=== PATIENT | male | born 1945 | race Caucasian/White ===

== ENCOUNTER 2019-01-11 13:11 | Inpatient (IN) | payer BC, MEDICARE ==
[~2019-01-11] VITALS: Ht 182.9 cm; Wt 79.4 kg
--- NOTE | 2019-01-11 13:17 | NUR ---
PT IS IN ROOM #1B.
--- NOTE | 2019-01-11 13:18 | NUR ---
DR MCCLURE EVALUATED THE PT.
[2019-01-11] MEDS ORDERED: DIVA500T54 PO (13:20)
[2019-01-11] MEDS ORDERED: HYDR-3026 PO (13:20)
[2019-01-11] MEDS ORDERED: IV NORMAL SALINE 500 ML BAG IV ONE (13:45)
[2019-01-11 13:47] LABS: BASOPHILS # (AUTO) 0.1 K/uL (0.0-8.0); BASOPHILS % (AUTO) 0.8 % (0.0-2.0); EOSINOPHILS # (AUTO) 0.1 K/uL (0.0-0.7); EOSINOPHILS % (AUTO) 1.1 % (0.0-7.0); HEMATOCRIT 43.9 % (36.7-47.1); HEMOGLOBIN 14.1 g/dL (12.5-16.3); LYMPHOCYTES # (AUTO) 1.5 K/uL (20.0-40.0); LYMPHOCYTES % (AUTO) 18.6 % (20.5-51.5); MEAN CORPUSCULAR HEMOGLOBIN 27.9 uug (23.8-33.4); MEAN CORPUSCULAR HGB CONC 32 g/dL (32.5-36.3); MEAN CORPUSCULAR VOLUME 86.6 fL (73.0-96.2); MONOCYTES # (AUTO) 0.4 K/uL (2.0-10.0); MONOCYTES % (AUTO) 5.7 % (0.0-11.0); NEUTROPHILS # (AUTO) 5.7 K/uL (1.8-8.9); NEUTROPHILS % (AUTO) 73.8 % (38.5-71.5); PLATELET COUNT (AUTO) 196 K/uL (152-348); RED BLOOD CELL COUNT(AUTO) 5.07 MIL/uL (4.06-5.63); WHITE BLOOD COUNT (AUTO) 7.8 K/uL (3.6-10.2)
[2019-01-11 13:54] LABS: CARBON DIOXIDE 31 mmol/L (21-32); CHLORIDE 105 mmol/L (98-107); CREATININE 0.9 mg/dL (0.6-1.3); GLUCOSE 107 mg/dL (74-106); POTASSIUM 4.1 mmol/L (3.5-5.1); UREA NITROGEN, BLOOD 11 mg/dL (7-18)
[2019-01-11 13:59] LABS: ALANINE AMINOTRANSFERASE 7 U/L (16-63); ALKALINE PHOSPHATASE 107 U/L (50-136); ASPARTATE AMINOTRANSFERASE 17 U/L (15-37); BILIRUBIN,DIRECT 0.2 mg/dL (0.0-0.2); BILIRUBIN,TOTAL 0.7 mg/dL (0.2-1.0); TOTAL PROTEIN, SERUM 7.2 g/dL (6.4-8.2)
[2019-01-11 14:07] LABS: THYROID STIMULATING HORMONE 3.622 mIU/mL (0.358-3.740)
[2019-01-11 14:29] LABS: *BILIRUBIN,URIN NEGATIVE (NEGATIVE); *BLOOD, URINE NEGATIVE (NEGATIVE); *COLOR,URINE DARK YELLOW (YELLOW); *KETONES,URINE TRACE (NEGATIVE); LEUKOCYTE ESTERASE ,URINE NEGATIVE (NEGATIVE); NITRITE, URINE NEGATIVE (NEGATIVE); PH,URINE 5.5 (5.0-8.0); UGLUCOSE NEGATIVE (NEGATIVE)
[2019-01-11 14:35] LABS: *CLARITY,URINE SLIGHTLY HAZY (CLEAR)
[2019-01-11 14:37] LABS: MUCUS,URINE MANY /LPF (0-FEW)
--- NOTE | 2019-01-11 15:00 | NUR ---
Pt. admitted to [facility] , under care of [facility] [employer] MADAI Belongs List completed
--- NOTE | 2019-01-11 15:58 | NUR ---
REPORT WAS GIVEN TO RN M/S. PT WAS TRANSFERED TO ROOM #315.
[2019-01-11 16:00] VITALS: BP 111/68
--- NOTE | 2019-01-11 16:00 | NUR ---
RECEIVED PATIENT FROM ER. PATIENT NON AMBULATORY, NONVERBAL. UNABLE TO OBTAIN ANY HISTORY FROM PATIENT. IV ON RIGHT AC 18G. BED IN LOWEST POSITION, SIDE RAILS UP X2 WITH SEIZURE PRECAUTIONS, CALL LIGHT WITHIN REACH. WILL CONTINUE TO MONITOR.
[2019-01-11] MEDS ORDERED: ACETAMINOPHEN 650 MG SUPP.RECT RC PRN (16:30)
[2019-01-11] MEDS ORDERED: MAGNESIUM HYDROXIDE 30 ML LIQUID UDC PO PRN (16:30)
[2019-01-11] MEDS ORDERED: ACETAMINOPHEN 325 MG TABLET PO PRN (16:30)
[2019-01-11] MEDS ORDERED: ONDANSETRON 4 MG/2 ML VIAL IV PRN (16:30)
[2019-01-11] MEDS ORDERED: Z GUARD REMEDY PASTE 57 GM TUBE TOP PRN (16:30)
[2019-01-11] MEDS: hydrOXYzine HCL 25 MG TABLET PO SCH (17:40)
--- NOTE | 2019-01-11 19:40 | NUR ---
Received patient awake in bed, nonverbal, non ambulatory. Not in any form of distress at the moment. With IV access to ongoing IV fluid, infusing well. Seizure precautions observed. Noted medication list from assisted living was faxed, will update home medication list and inform Isael Armenta. Bed in low position, locked, side rails up x 2 for safety. Noise and lights subdued. Will continue to monitor.
[2019-01-11] MEDS ORDERED: ASCO500T10 PO (19:44)
[2019-01-11] MEDS ORDERED: CARB-93 PO (19:44)
[2019-01-11] MEDS ORDERED: RISP0.5T20 PO (19:44)
[2019-01-11] MEDS ORDERED: MULT-1094 PO (19:44)
[2019-01-11 20:02] VITALS: BP 112/60
[2019-01-11] MEDS: IV NS 1000 ML 1,000 ML IV PRN (20:30)
[2019-01-11] MEDS: DOCUSATE SODIUM 100 MG CAPSULE PO SCH (20:31)
[2019-01-11] MEDS: ENOXAPARIN SODIUM 40 MG/0.4 ML DISP.SYRIN SQ SCH (20:42)
[2019-01-12 05:33] VITALS: BP 114/64
--- NOTE | 2019-01-12 05:53 | NUR ---
Patient slept intermittently throughout the shift. Opens eyes upon calling name but still nonverbal. No distress noted. DVT pumps placed on lower extremities. Maintained on full liquid diet, pending swallow evaluation. Seizure precaution observed. Attended all needs. Ensured safety and comfort.
[2019-01-12] MEDS: PANTOPRAZOLE SODIUM 40 MG TABLET.DR PO SCH (06:10)
[2019-01-12 06:32] LABS: BASOPHILS % (AUTO) 0.6 % (0.0-2.0); EOSINOPHILS % (AUTO) 0.6 % (0.0-7.0); HEMATOCRIT 41.2 % (36.7-47.1); HEMOGLOBIN 13.5 g/dL (12.5-16.3); LYMPHOCYTES # (AUTO) 1.1 K/uL (20.0-40.0); LYMPHOCYTES % (AUTO) 15.4 % (20.5-51.5); MEAN CORPUSCULAR HEMOGLOBIN 28.4 uug (23.8-33.4); MEAN CORPUSCULAR HGB CONC 33 g/dL (32.5-36.3); MEAN CORPUSCULAR VOLUME 86.5 fL (73.0-96.2); MONOCYTES # (AUTO) 0.4 K/uL (2.0-10.0); MONOCYTES % (AUTO) 5.9 % (0.0-11.0); NEUTROPHILS # (AUTO) 5.7 K/uL (1.8-8.9); NEUTROPHILS % (AUTO) 77.5 % (38.5-71.5); PLATELET COUNT (AUTO) 169 K/uL (152-348); RED BLOOD CELL COUNT(AUTO) 4.76 MIL/uL (4.06-5.63); WHITE BLOOD COUNT (AUTO) 7.4 K/uL (3.6-10.2)
[2019-01-12 06:56] LABS: CARBON DIOXIDE 31 mmol/L (21-32); CHLORIDE 106 mmol/L (98-107); CHOLESTEROL 185 mg/dL (<200); CREATININE 0.7 mg/dL (0.6-1.3); GLUCOSE 99 mg/dL (74-106); HDL CHOLESTEROL 32 mg/dL (40-60); MAGNESIUM 1.8 mg/dL (1.8-2.4); PHOSPHOROUS 3.1 mg/dL (2.5-4.9); POTASSIUM 3.5 mmol/L (3.5-5.1); TRIGLYCERIDES 126 MG/DL (30-150); UREA NITROGEN, BLOOD 10 mg/dL (7-18)
[2019-01-12 07:09] LABS: VALPROIC ACID 6 ug/mL (50-100)
--- NOTE | 2019-01-12 07:15 | NUR ---
Received patient in bed resting with HOB elevated with no s/s of acute distress noted at this time, safety and comfort provided to the patient at all times. will continue to monitor and continue treatment plan.
[2019-01-12] MEDS: IV NS 1000 ML 1,000 ML IV PRN ×2 (08:04→21:23)
[2019-01-12] MEDS ORDERED: DIVALPROEX ER 500 MG TAB.SR.24H PO SCH (09:00)
[2019-01-12] MEDS: DIVALPROEX ER 250 MG TAB.SR.24H PO SCH (10:01)
[2019-01-12] MEDS: hydrOXYzine HCL 25 MG TABLET PO SCH ×2 (10:01→16:45)
[2019-01-12] MEDS: MULTIVIT, IRON, MIN NO. 8, FA TABLET PO SCH (10:01)
[2019-01-12] MEDS: ASCORBIC ACID 500 MG TABLET PO SCH (10:01)
[2019-01-12] MEDS: CARBIDOPA/LEVODOPA 25-100MG TABLET PO SCH ×3 (10:01→16:45)
[2019-01-12] MEDS: risperiDONE 0.5 MG TABLET PO SCH ×2 (10:01→16:46)
[2019-01-12 11:14] VITALS: BP 125/67
[2019-01-12 15:02] VITALS: BP 111/61
--- NOTE | 2019-01-12 18:33 | NUR ---
Patient alert and oriented , non verbal. HOB elevated and watching TV. No acute distress noted and no s/s of pain at this time. Kept clean and dry at all times. IV intact and patent, safety and and comfort provided at all times. Call light within reached, will continue to monitor and continue treatment.
[2019-01-12 20:00] VITALS: BP 120/66
--- NOTE | 2019-01-12 20:00 | NUR ---
RECEIVED PATIENT AWAKE IN BED, SITTING UP. PATIENT IS ALERT X1, ABLE TO RECOGNIZE NAME WHEN SPOKEN TO BUT IS APHASIC AND UNABLE TO VERBALLY RESPOND TO INQUIRIES. FLACC SCALE USED TO MEASURE PAIN/DISCOMFORT WITH NONE SEEN OR OBSERVED AT THIS TIME. ALL SAFETY AND FALL PRECAUTION MEASURES ARE IN PLACE. CALL LIGHT AND PERSONAL ITEMS ARE WITHIN REACH AT ALL TIMES. WILL CONTINUE TO MONITOR.
[2019-01-12] MEDS: DOCUSATE SODIUM 100 MG CAPSULE PO SCH (21:17)
[2019-01-12] MEDS: ATORVASTATIN 10 MG TABLET PO SCH (21:17)
[2019-01-12] MEDS: ENOXAPARIN SODIUM 40 MG/0.4 ML DISP.SYRIN SQ SCH (21:18)
--- NOTE | 2019-01-13 01:07 | NUR ---
GAVE REPORT TO NURSE TAKING OVER PATIENT'S CARE
[2019-01-13 05:46] VITALS: BP 124/82
[2019-01-13] MEDS: PANTOPRAZOLE SODIUM 40 MG TABLET.DR PO SCH (06:35)
[2019-01-13 06:50] LABS: BASOPHILS # (AUTO) 0.1 K/uL (0.0-8.0); BASOPHILS % (AUTO) 0.7 % (0.0-2.0); EOSINOPHILS % (AUTO) 0.5 % (0.0-7.0); HEMATOCRIT 39.4 % (36.7-47.1); LYMPHOCYTES # (AUTO) 1.1 K/uL (20.0-40.0); LYMPHOCYTES % (AUTO) 14.7 % (20.5-51.5); MEAN CORPUSCULAR HEMOGLOBIN 28.5 uug (23.8-33.4); MEAN CORPUSCULAR HGB CONC 33 g/dL (32.5-36.3); MEAN CORPUSCULAR VOLUME 86.6 fL (73.0-96.2); MONOCYTES # (AUTO) 0.5 K/uL (2.0-10.0); NEUTROPHILS # (AUTO) 6.1 K/uL (1.8-8.9); NEUTROPHILS % (AUTO) 78.1 % (38.5-71.5); PLATELET COUNT (AUTO) 153 K/uL (152-348); RED BLOOD CELL COUNT(AUTO) 4.55 MIL/uL (4.06-5.63); WHITE BLOOD COUNT (AUTO) 7.8 K/uL (3.6-10.2)
--- NOTE | 2019-01-13 07:15 | NUR ---
RECEIVED PATIENT LAYING IN BED SLEEPING. NO DISTRESS NOTED. BED IN LOWEST POSITION, SIDE RAILS UP X2 HOB SEMI FOWLERS FOR ASPIRATION PRECAUTIONS. WILL CONTINUE TO MONITOR.
[2019-01-13 07:23] LABS: CARBON DIOXIDE 28 mmol/L (21-32); CHLORIDE 106 mmol/L (98-107); CREATININE 0.7 mg/dL (0.6-1.3); GLUCOSE 104 mg/dL (74-106); MAGNESIUM 1.8 mg/dL (1.8-2.4); PHOSPHOROUS 2.8 mg/dL (2.5-4.9); POTASSIUM 3.6 mmol/L (3.5-5.1); UREA NITROGEN, BLOOD 8 mg/dL (7-18)
--- NOTE | 2019-01-13 07:38 | NUR ---
Pt. resting in bed alert oriented x1. Pt. responds to name. Bed bath given and new linen changes. Vital signs stable. Safety measures in place. Comfort measures provided. Will endorse to AM nurse
[2019-01-13] MEDS: DIVALPROEX ER 250 MG TAB.SR.24H PO SCH (09:36)
[2019-01-13] MEDS: hydrOXYzine HCL 25 MG TABLET PO SCH ×2 (09:36→17:26)
[2019-01-13] MEDS: ASPIRIN 81 MG TAB.CHEW PO SCH (09:36)
[2019-01-13] MEDS: ASCORBIC ACID 500 MG TABLET PO SCH (09:37)
[2019-01-13] MEDS: CARBIDOPA/LEVODOPA 25-100MG TABLET PO SCH ×3 (09:37→17:26)
[2019-01-13] MEDS: MULTIVIT, IRON, MIN NO. 8, FA TABLET PO SCH (09:37)
[2019-01-13] MEDS: risperiDONE 0.5 MG TABLET PO SCH ×2 (09:37→17:26)
[2019-01-13] MEDS: IV NS 1000 ML 1,000 ML IV PRN (10:58)
[2019-01-13 11:41] VITALS: BP 138/72
--- NOTE | 2019-01-13 14:44 | NUR ---
WOUND CARE CONSULT: PT PRESENTS WITH SACRAL SCARRING PRESENT ON ADMISSION. RECOMMENDATIONS MADE FOR SKIN PROTECTION. DISCUSSED WITH NURSING STAFF. PT IS INCONTINENT. WILL SEE PRN. PT ON FIRST STEP GINGER SALDAÑA MD IN AGREEMENT WITH PLAN OF CARE. Addendum: 01/13/19 at 1445 by ALEJANDRA LEW RN Amended: Links added.
[2019-01-13 16:04] VITALS: BP 107/59
--- NOTE | 2019-01-13 18:10 | NUR ---
Patient slept intermittently throughout day. Iv fluids running .Air mattress placed. Wound consult done for old healing wounds. no distress noted throughout shift. bed in lowest position, side rails up x2, call light within reach.
[2019-01-13 20:48] VITALS: BP 101/54
[2019-01-13] MEDS: ATORVASTATIN 10 MG TABLET PO SCH (20:50)
[2019-01-13] MEDS: DOCUSATE SODIUM 100 MG CAPSULE PO SCH (20:50)
[2019-01-13] MEDS: ENOXAPARIN SODIUM 40 MG/0.4 ML DISP.SYRIN SQ SCH (20:51)
[2019-01-14] MEDS: IV NS 1000 ML 1,000 ML IV PRN ×2 (00:36→15:28)
[2019-01-14] MEDS: PANTOPRAZOLE SODIUM 40 MG TABLET.DR PO SCH (06:30)
--- NOTE | 2019-01-14 06:58 | NUR ---
patient slept intermittently at night. Took his meds with apple sauce. Comfort and safety provided. No acute distress noted during the shift. IV is patent
[2019-01-14] MEDS: ASPIRIN 81 MG TAB.CHEW PO SCH (09:23)
[2019-01-14] MEDS: hydrOXYzine HCL 25 MG TABLET PO SCH ×2 (09:24→17:19)
[2019-01-14] MEDS: risperiDONE 0.5 MG TABLET PO SCH ×2 (09:24→17:19)
[2019-01-14] MEDS: DIVALPROEX ER 250 MG TAB.SR.24H PO SCH (09:24)
[2019-01-14] MEDS: CARBIDOPA/LEVODOPA 25-100MG TABLET PO SCH ×3 (09:25→17:19)
[2019-01-14] MEDS: MULTIVIT, IRON, MIN NO. 8, FA TABLET PO SCH (09:25)
[2019-01-14] MEDS: ASCORBIC ACID 500 MG TABLET PO SCH (09:25)
[2019-01-14 11:09] VITALS: BP 121/60
[2019-01-14 17:40] VITALS: BP 120/75
--- NOTE | 2019-01-14 19:34 | NUR ---
PATIENT HAS BEEN COOPERATIVE WITH CARE, ALL NEEDS MET AT THIS TIME, PATIENT HAS A GOOD APPETITE AND NO ASPIRATION NOTED THROUGHOUT SHIFT. BED IN LOW POSITION, SIDE RAILS UP X2, BED ALARM ON.
--- NOTE | 2019-01-14 19:43 | NUR ---
Received patient awake in bed on high fowlers, nonverbal, non ambulatory. Not in any form of distress at the moment. With IV access to ongoing IV fluid, infusing well. Will observe seizure and aspiration precautions . Bed in low position, locked, side rails up x 2 for safety. Noise and lights subdued. Will continue to monitor.
[2019-01-14] MEDS: DOCUSATE SODIUM 100 MG CAPSULE PO SCH (20:05)
[2019-01-14] MEDS: ATORVASTATIN 10 MG TABLET PO SCH (20:05)
[2019-01-14] MEDS: ENOXAPARIN SODIUM 40 MG/0.4 ML DISP.SYRIN SQ SCH (20:07)
[2019-01-14 20:19] VITALS: BP 132/62
[2019-01-15 04:18] VITALS: BP 118/68
[2019-01-15] MEDS: IV NS 1000 ML 1,000 ML IV PRN ×2 (04:38→18:47)
--- NOTE | 2019-01-15 05:43 | NUR ---
Patient slept intermittently throughout the shift. Opens eyes upon calling name but still nonverbal. No distress noted. DVT pumps on lower extremities. Seizure precaution observed. Attended all needs. Ensured safety and comfort.
[2019-01-15 05:51] LABS: BASOPHILS # (AUTO) 0.1 K/uL (0.0-8.0); BASOPHILS % (AUTO) 0.8 % (0.0-2.0); EOSINOPHILS # (AUTO) 0.1 K/uL (0.0-0.7); EOSINOPHILS % (AUTO) 1.4 % (0.0-7.0); HEMATOCRIT 38.1 % (36.7-47.1); HEMOGLOBIN 12.6 g/dL (12.5-16.3); LYMPHOCYTES # (AUTO) 1.3 K/uL (20.0-40.0); LYMPHOCYTES % (AUTO) 18.4 % (20.5-51.5); MEAN CORPUSCULAR HEMOGLOBIN 28.6 uug (23.8-33.4); MEAN CORPUSCULAR HGB CONC 33 g/dL (32.5-36.3); MEAN CORPUSCULAR VOLUME 86.2 fL (73.0-96.2); MONOCYTES # (AUTO) 0.5 K/uL (2.0-10.0); MONOCYTES % (AUTO) 6.4 % (0.0-11.0); NEUTROPHILS # (AUTO) 5.2 K/uL (1.8-8.9); PLATELET COUNT (AUTO) 157 K/uL (152-348); RED BLOOD CELL COUNT(AUTO) 4.42 MIL/uL (4.06-5.63); WHITE BLOOD COUNT (AUTO) 7.1 K/uL (3.6-10.2)
[2019-01-15] MEDS: PANTOPRAZOLE SODIUM 40 MG TABLET.DR PO SCH (06:09)
[2019-01-15 06:12] LABS: ALANINE AMINOTRANSFERASE 11 U/L (16-63); ALKALINE PHOSPHATASE 73 U/L (50-136); ASPARTATE AMINOTRANSFERASE 16 U/L (15-37); BILIRUBIN,TOTAL 0.5 mg/dL (0.2-1.0); CARBON DIOXIDE 29 mmol/L (21-32); CHLORIDE 110 mmol/L (98-107); CREATININE 0.7 mg/dL (0.6-1.3); GLUCOSE 94 mg/dL (74-106); MAGNESIUM 1.8 mg/dL (1.8-2.4); PHOSPHOROUS 3.1 mg/dL (2.5-4.9); POTASSIUM 4.2 mmol/L (3.5-5.1); TOTAL PROTEIN, SERUM 5.8 g/dL (6.4-8.2); UREA NITROGEN, BLOOD 11 mg/dL (7-18); VALPROIC ACID 13 ug/mL (50-100)
--- NOTE | 2019-01-15 07:05 | NUR ---
Received report from mold shifter nurse. Patient noted in bed awake, non-verbal. Not in distress at this time. On aspiration and seizure precautions. Kept bed in low position, locked with side rails up x 2 for safety. Will continue to monitor
[2019-01-15] MEDS: hydrOXYzine HCL 25 MG TABLET PO SCH ×2 (08:30→16:53)
[2019-01-15] MEDS: ASPIRIN 81 MG TAB.CHEW PO SCH (08:30)
[2019-01-15] MEDS: DIVALPROEX ER 250 MG TAB.SR.24H PO SCH (08:31)
[2019-01-15] MEDS: MULTIVIT, IRON, MIN NO. 8, FA TABLET PO SCH (08:31)
[2019-01-15] MEDS: risperiDONE 0.5 MG TABLET PO SCH ×2 (08:31→16:52)
[2019-01-15] MEDS: ASCORBIC ACID 500 MG TABLET PO SCH (08:31)
[2019-01-15] MEDS: CARBIDOPA/LEVODOPA 25-100MG TABLET PO SCH ×3 (08:31→16:53)
[2019-01-15 12:00] VITALS: BP 104/51
[2019-01-15 17:06] VITALS: BP 111/54
--- NOTE | 2019-01-15 18:50 | NUR ---
Patient has been cooperative w/ care. No s/sx of aspiration noted. All needs met.
[2019-01-15 20:06] VITALS: BP 107/59
[2019-01-15] MEDS: DOCUSATE SODIUM 100 MG CAPSULE PO SCH (20:19)
[2019-01-15] MEDS: ATORVASTATIN 10 MG TABLET PO SCH (20:19)
[2019-01-15] MEDS: ENOXAPARIN SODIUM 40 MG/0.4 ML DISP.SYRIN SQ SCH (20:22)
[2019-01-16 05:34] VITALS: BP 119/69
--- NOTE | 2019-01-16 05:36 | NUR ---
Patient slept well throughout the shift. No distress noted. DVT pumps on lower extremities. Air mattress in place. Seizure precaution and strict aspiration precautions observed. Attended all needs. Ensured safety and comfort.
[2019-01-16] MEDS: PANTOPRAZOLE SODIUM 40 MG TABLET.DR PO SCH (06:10)
[2019-01-16] MEDS: DIVALPROEX ER 250 MG TAB.SR.24H PO SCH (08:55)
[2019-01-16] MEDS: ASPIRIN 81 MG TAB.CHEW PO SCH (08:56)
[2019-01-16] MEDS: risperiDONE 0.5 MG TABLET PO SCH ×2 (08:56→17:41)
[2019-01-16] MEDS: CARBIDOPA/LEVODOPA 25-100MG TABLET PO SCH ×3 (08:56→17:41)
[2019-01-16] MEDS: MULTIVIT, IRON, MIN NO. 8, FA TABLET PO SCH (08:56)
[2019-01-16] MEDS: ASCORBIC ACID 500 MG TABLET PO SCH (08:56)
[2019-01-16] MEDS: hydrOXYzine HCL 25 MG TABLET PO SCH ×2 (08:57→17:41)
[2019-01-16] MEDS: IV NS 1000 ML 1,000 ML IV PRN ×2 (08:58→22:59)
[2019-01-16 09:08] VITALS: BP 129/69
[2019-01-16 11:40] VITALS: BP 100/55
[2019-01-16] MEDS ORDERED: ASPI81TA31 PO (14:11)
[2019-01-16] MEDS ORDERED: ATOR10TA PO (14:11)
[2019-01-16 16:00] VITALS: BP 112/61
--- NOTE | 2019-01-16 17:52 | NUR ---
Patient slept intermittently throughout shift. AAOx1. Nonverbal. Compliant with care and medications. No acute distress noted throughout shift. IV on R AC intact and patient with IV fluids running. Discharge ordered for today. Not able to get authorization from insurance. Goal is discharge for tomorrow. Safety and comfort measures implemented at all times. Bed in lowest and locked position. All needs met. Will endorse to night stocker nurse accordingly.
--- NOTE | 2019-01-16 20:00 | NUR ---
PATIENT AWAKE IN BED. ALERT TO SELF ONLY. FLAT AFFECT. NO S/S OF PAIN OR DISCOMFORT. NO FACIAL GRIMACE NOTED. VS WNL. IVF INFUSING WELL TO RIGHT AC #20 GAUGE. NO RESP. DISTRESS NOTED. BED ALARM ON. CALL LIGHT IN REACH. ALL NEEDS ATTENDED. WILL CONTINUE TO MONITOR AND ASSESS.
[2019-01-16 20:46] VITALS: BP 124/66
[2019-01-16] MEDS: DOCUSATE SODIUM 100 MG CAPSULE PO SCH (21:21)
[2019-01-16] MEDS: ENOXAPARIN SODIUM 40 MG/0.4 ML DISP.SYRIN SQ SCH (21:21)
[2019-01-16] MEDS: ATORVASTATIN 10 MG TABLET PO SCH (21:21)
[2019-01-17] MEDS: PANTOPRAZOLE SODIUM 40 MG TABLET.DR PO SCH (06:02)
[2019-01-17 06:28] VITALS: BP 124/65
--- NOTE | 2019-01-17 06:35 | NUR ---
PATIENT RESTING IN BED. SLEPT WELL THROUGHOUT THE NIGHT. IV NOTED TO RIGHT AC, INFILTRATED. REMOVED. NO S/S OF PAIN OR DISCOMFORT. NO RESP. DISTRESS NOTED. BED ALARM ON. ALL NEEDS ATTENDED. WILL CONTINUE TO MONITOR AND ASSESS.
--- NOTE | 2019-01-17 07:47 | NUR ---
Awake, non verbal at this time, flat affect, calm. Not in distress. No IV site.
[2019-01-17] MEDS: hydrOXYzine HCL 25 MG TABLET PO SCH ×2 (09:00→16:56)
[2019-01-17] MEDS: MULTIVIT, IRON, MIN NO. 8, FA TABLET PO SCH (09:00)
[2019-01-17] MEDS: risperiDONE 0.5 MG TABLET PO SCH ×2 (09:00→16:56)
[2019-01-17] MEDS: CARBIDOPA/LEVODOPA 25-100MG TABLET PO SCH ×3 (09:00→16:56)
[2019-01-17] MEDS: DIVALPROEX ER 250 MG TAB.SR.24H PO SCH (09:00)
[2019-01-17] MEDS: ASPIRIN 81 MG TAB.CHEW PO SCH (09:00)
[2019-01-17] MEDS: ASCORBIC ACID 500 MG TABLET PO SCH (09:00)
[2019-01-17 11:45] VITALS: BP 117/63
--- NOTE | 2019-01-17 12:30 | NUR ---
Assisted with meal with aspiration precaution. Able to consume 100% of food served.
[2019-01-17 16:26] VITALS: BP 135/67
--- NOTE | 2019-01-17 17:33 | NUR ---
Followed up w/ case management social worker Nara regarding discharge, authorization for placement still pending at this time
--- NOTE | 2019-01-17 18:12 | NUR ---
Incontinence care done. Repositioned comfortably. Kept dry and comfortable
--- NOTE | 2019-01-17 19:30 | NUR ---
Patient received lying in bed. no signs of acute distress. v/s stable. safety and comfort measures provided. bed in lowest position, side rails up x2, bed alarm on. will continue to monitor.
[2019-01-17 20:11] VITALS: BP 125/69
[2019-01-17] MEDS: ATORVASTATIN 10 MG TABLET PO SCH (21:24)
[2019-01-17] MEDS: DOCUSATE SODIUM 100 MG CAPSULE PO SCH (21:24)
[2019-01-17] MEDS: ENOXAPARIN SODIUM 40 MG/0.4 ML DISP.SYRIN SQ SCH (21:27)
--- NOTE | 2019-01-18 05:49 | NUR ---
patient slept intermittently. no signs of acute distress. all medications adminsitered and tolerated well. safety and comfort measures provided. will endorse care to morning nurse.
[2019-01-18] MEDS: PANTOPRAZOLE SODIUM 40 MG TABLET.DR PO SCH (06:13)
[2019-01-18 06:16] VITALS: BP 118/70
--- NOTE | 2019-01-18 07:20 | NUR ---
Nurse Notes: report from the night nurse Mary Fernández RN, patient is resting in bed, In no respiratory distress. No complaints of any pain. Has no hep lock.
[2019-01-18] MEDS: CARBIDOPA/LEVODOPA 25-100MG TABLET PO SCH ×3 (09:12→17:34)
[2019-01-18] MEDS: MULTIVIT, IRON, MIN NO. 8, FA TABLET PO SCH (09:13)
[2019-01-18] MEDS: risperiDONE 0.5 MG TABLET PO SCH ×2 (09:13→17:34)
[2019-01-18] MEDS: DIVALPROEX ER 250 MG TAB.SR.24H PO SCH (09:14)
[2019-01-18] MEDS: ASPIRIN 81 MG TAB.CHEW PO SCH (09:14)
[2019-01-18] MEDS: ASCORBIC ACID 500 MG TABLET PO SCH (09:14)
[2019-01-18] MEDS: hydrOXYzine HCL 25 MG TABLET PO SCH ×2 (09:22→17:36)
[2019-01-18 11:02] VITALS: BP 106/56
--- NOTE | 2019-01-18 13:30 | NUR ---
Nurse Notes: meals taken 75-80%, patient will eat when fed. taking oral medications whole on apple sauce, Appears in no discomfort. No verbally talking. eyes are open.
[2019-01-18 15:06] VITALS: BP 110/68
--- NOTE | 2019-01-18 18:11 | NUR ---
Nurse Notes: patient is going to [facility], report given to Rogers Villafuerte. via gurney and ambulance, has no hep lock. No complain ts of pain given.
== END 2019-01-18 18:15 | DRG 640 ==
LOC: ER 13:11 → MEDSURG3 15:35
PROVIDERS: ADMIT Hospitalist; ATTEND Hospitalist
DX: E86.0 Dehydration (principal); R53.2 Functional quadriplegia; G93.41 Metabolic encephalopathy; R47.01 Aphasia; F02.81 Dementia in other diseases classified elsewhere, unspecified severity, with behavioral disturbance; E44.1 Mild protein-calorie malnutrition; I67.82 Cerebral ischemia; R62.7 Adult failure to thrive; Z68.23 Body mass index [BMI] 23.0-23.9, adult; G40.909 Epilepsy, unspecified, not intractable, without status epilepticus; F20.9 Schizophrenia, unspecified; E78.5 Hyperlipidemia, unspecified; R13.10 Dysphagia, unspecified; Z99.3 Dependence on wheelchair; G31.83 Neurocognitive disorder with Lewy bodies; L90.5 Scar conditions and fibrosis of skin; L89.519 Pressure ulcer of right ankle, unspecified stage; G31.9 Degenerative disease of nervous system, unspecified
CPT/HCPCS: 36415; 70030-TC; 70450; 71045; 80164; 83735; 84100; 84443; 85025; 85730; 87086; 92526; 92610; 93005; 97110; 97530; A4663; C1758; G0378; J1650; J7030

== ENCOUNTER 2019-01-25 12:30 | Inpatient (IN) | payer MEDICARE ==
[~2019-01-25] VITALS: Ht 177.8 cm; Wt 80.3 kg
[~2019-01-25 12:30] MED LIST: ASCO500T10 PO; ASPI81TA31 PO; ATOR10TA PO; CARB-93 PO; DIVA500T54 PO; HYDR-3026 PO; MULT-1094 PO; RISP0.5T20 PO
[2019-01-25] MEDS ORDERED: IV NORMAL SALINE 500 ML BAG IV ONE (12:45)
[2019-01-25] MEDS ORDERED: LIDO40SO4 MM (12:58)
[2019-01-25] MEDS ORDERED: CICL6.6S5 TP (12:58)
[2019-01-25] MEDS ORDERED: [UNRECOGNIZED DRUG - CODE] PO (12:58)
[2019-01-25] MEDS ORDERED: DOCU100C36 PO (12:58)
[2019-01-25] MEDS ORDERED: CHLO473M3 MM (12:58)
[2019-01-25 13:04] LABS: BASOPHILS % (AUTO) 0.2 % (0.0-2.0); LYMPHOCYTES # (AUTO) 0.8 K/uL (20.0-40.0); LYMPHOCYTES % (AUTO) 3.8 % (20.5-51.5); MEAN CORPUSCULAR HEMOGLOBIN 27.8 uug (23.8-33.4); MEAN CORPUSCULAR HGB CONC 33 g/dL (32.5-36.3); MEAN CORPUSCULAR VOLUME 85.2 fL (73.0-96.2); MONOCYTES % (AUTO) 4.8 % (0.0-11.0); NEUTROPHILS # (AUTO) 18.7 K/uL (1.8-8.9); NEUTROPHILS % (AUTO) 91.2 % (38.5-71.5); PLATELET COUNT (AUTO) 273 K/uL (152-348); WHITE BLOOD COUNT (AUTO) 20.5 K/uL (3.6-10.2)
--- NOTE | 2019-01-25 13:14 | NUR ---
PT IS IN ROOM #1B. DR BURNETT EVALUATED THE PT.
[2019-01-25 13:21] LABS: CARBON DIOXIDE 30 mmol/L (21-32); CHLORIDE 100 mmol/L (98-107); CREATININE 0.8 mg/dL (0.6-1.3); GLUCOSE 131 mg/dL (74-106); POTASSIUM 3.9 mmol/L (3.5-5.1); UREA NITROGEN, BLOOD 18 mg/dL (7-18)
[2019-01-25 13:24] LABS: LYMPHOCYTES % (MANUAL) 5 % (20-40); MONOCYTES % (MANUAL) 6 % (2-10); NEUTROPHILS % (MANUAL) 89 % (42-75); THYROID STIMULATING HORMONE 3.933 mIU/mL (0.358-3.740)
[2019-01-25 13:27] LABS: ALANINE AMINOTRANSFERASE 13 U/L (16-63); ALKALINE PHOSPHATASE 90 U/L (50-136); ASPARTATE AMINOTRANSFERASE 37 U/L (15-37); BILIRUBIN,DIRECT 0.3 mg/dL (0.0-0.2); BILIRUBIN,TOTAL 0.9 mg/dL (0.2-1.0); TOTAL PROTEIN, SERUM 7.4 g/dL (6.4-8.2)
[2019-01-25 13:43] LABS: *BILIRUBIN,URIN NEGATIVE (NEGATIVE); *BLOOD, URINE 3+ (NEGATIVE); *CLARITY,URINE SLIGHTLY CLOUDY (CLEAR); *KETONES,URINE TRACE (NEGATIVE); LEUKOCYTE ESTERASE ,URINE 1+ (NEGATIVE); NITRITE, URINE NEGATIVE (NEGATIVE); UGLUCOSE NEGATIVE (NEGATIVE)
[2019-01-25 13:44] LABS: *COLOR,URINE YELLOW (YELLOW)
[2019-01-25 13:48] LABS: BACTERIA,URINE FEW /HPF (NONE SEEN); RBC,URINE TNTC /HPF (0-3); SQUAMOUS EPITHELIAL CELL,UR FEW /HPF (NONE SEEN); URINE AMORPHOUS URATE FEW /HPF
[2019-01-25] MEDS ORDERED: CEFTRIAXONE 1 G in IV DEXTROSE 5% 50 ML IV ONE (14:15)
[2019-01-25] MEDS ORDERED: CEFTRIAXONE 1 G VIAL ONE (14:24)
[2019-01-25] MEDS ORDERED: AZITHROMYCIN IV 500 MG in IV DEXTROSE 5% 250 ML IV ONE (14:45)
[2019-01-25] MEDS ORDERED: ONDANSETRON 4 MG/2 ML VIAL IV PRN (15:00)
[2019-01-25] MEDS ORDERED: MAGNESIUM HYDROXIDE 30 ML LIQUID UDC PO PRN (15:00)
[2019-01-25] MEDS ORDERED: Z GUARD REMEDY PASTE 57 GM TUBE TOP PRN (15:00)
[2019-01-25] MEDS ORDERED: CEFEPIME HCL 1 G in IV DEXTROSE 5% 50 ML IV SCH (15:00)
[2019-01-25] MEDS ORDERED: HYDROCODONE/APAP 5-325MG TABLET PO PRN (15:00)
--- NOTE | 2019-01-25 15:59 | NUR ---
REPORT WAS GIVEN TO BLOOD DONOR UNIT ASSISTANT. PT WAS TRANSFERED TO ROOM #302.
[2019-01-25 16:41] VITALS: BP 99/64
[2019-01-25] MEDS: PIPERACILLIN/TAZOBACTAM/D5W 3.375 G in PREMIXED 1 EACH IV SCH ×2 (17:53→22:08)
[2019-01-25] MEDS: IV NS 1000 ML 1,000 ML IV PRN (17:53)
--- NOTE | 2019-01-25 18:59 | NUR ---
STARTED ON ZOSYN NO SS OF ALLERGY REACTION KEPT NPO WITH IVF AT 75 ML/HR. AIR MATTRESS IN PLACED SR ON MONITOR. ASPIRATION PRECAUTION OBSERVED
--- NOTE | 2019-01-25 19:30 | NUR ---
Received patient in bed asleep, easily arousable. Patient is nonverbal. Not in distress at this time. Kept bed locked and in low position, w/ side rails up x 2. Call light in reach. Will continue to monitor Addendum: 01/26/19 at 0757 by LILIBETH ZUNIGA RN PT RESTING IN BED. PT EASILY AROUSABLE. PT IS NON VERBAL. PT IS NPO, NO DISTRESS NOTED AT THIS TIME. BED LOCKED AND IN LOW POSITION. CALL LIGHT IN REACH, WILL CONTINUE TO MONITOR , WILL CONTINUE PLAN OF CARE. Addendum: 01/26/19 at 0812 by LILIBETH ZUNIGA RN PLEASE DISREGARD ADDENDUM. ENTRY ERROR
[2019-01-25 20:00] VITALS: BP 99/54
--- NOTE | 2019-01-25 20:18 | NUR ---
Patient is discharged to home in stable condition. Heplock on left upper arm, removed. Discharge instructions and medication list given to , verbalized understanding. All belongings taken by . Escorted patient by [facility] Addendum: 01/25/19 at 2106 by [place] DELA CRUZ RN Written in error, not for this patient
[2019-01-26] VITALS: BP 133/71
[2019-01-26 04:00] VITALS: BP 134/66
[2019-01-26] MEDS: PIPERACILLIN/TAZOBACTAM/D5W 3.375 G in PREMIXED 1 EACH IV SCH ×3 (05:20→21:31)
[2019-01-26] MEDS: IV NS 1000 ML 1,000 ML IV PRN ×2 (05:27→18:06)
--- NOTE | 2019-01-26 06:26 | NUR ---
Patient slept intermittently throughout the night. Oral hygiene and suction done, tolerated well. Not in distress at this time
[2019-01-26 06:39] LABS: CARBON DIOXIDE 29 mmol/L (21-32); CHLORIDE 106 mmol/L (98-107); CHOLESTEROL 144 mg/dL (<200); CREATININE 0.8 mg/dL (0.6-1.3); GLUCOSE 108 mg/dL (74-106); HDL CHOLESTEROL 33 mg/dL (40-60); MAGNESIUM 1.9 mg/dL (1.8-2.4); PHOSPHOROUS 3.9 mg/dL (2.5-4.9); POTASSIUM 3.6 mmol/L (3.5-5.1); TRIGLYCERIDES 66 MG/DL (30-150); UREA NITROGEN, BLOOD 15 mg/dL (7-18)
[2019-01-26 06:50] LABS: BASOPHILS # (AUTO) 0.1 K/uL (0.0-8.0); BASOPHILS % (AUTO) 0.3 % (0.0-2.0); EOSINOPHILS % (AUTO) 0.1 % (0.0-7.0); HEMATOCRIT 40.8 % (36.7-47.1); HEMOGLOBIN 13.5 g/dL (12.5-16.3); LYMPHOCYTES # (AUTO) 0.8 K/uL (20.0-40.0); LYMPHOCYTES % (AUTO) 4.4 % (20.5-51.5); MEAN CORPUSCULAR HEMOGLOBIN 28.4 uug (23.8-33.4); MEAN CORPUSCULAR HGB CONC 33 g/dL (32.5-36.3); MEAN CORPUSCULAR VOLUME 85.8 fL (73.0-96.2); MONOCYTES # (AUTO) 0.7 K/uL (2.0-10.0); MONOCYTES % (AUTO) 3.8 % (0.0-11.0); NEUTROPHILS # (AUTO) 16.3 K/uL (1.8-8.9); NEUTROPHILS % (AUTO) 91.4 % (38.5-71.5); PLATELET COUNT (AUTO) 228 K/uL (152-348); RED BLOOD CELL COUNT(AUTO) 4.75 MIL/uL (4.06-5.63); WHITE BLOOD COUNT (AUTO) 17.9 K/uL (3.6-10.2)
--- NOTE | 2019-01-26 07:58 | NUR ---
PT RESTING IN BED. PT EASILY AROUSABLE. PT IS NON VERBAL. PT IS NPO, NO DISTRESS NOTED AT THIS TIME. BED LOCKED AND IN LOW POSITION. CALL LIGHT IN REACH, WILL CONTINUE TO MONITOR , WILL CONTINUE PLAN OF CARE.
[2019-01-26 08:00] VITALS: BP 118/58
[2019-01-26 11:03] VITALS: BP 109/59
--- NOTE | 2019-01-26 12:00 | NUR ---
Pt seen by ST/PT/OT for eval, requires f/u in AM. Seen by hospitalist. See notes.
[2019-01-26 15:06] VITALS: BP 106/53
--- NOTE | 2019-01-26 18:16 | NUR ---
No acute change. No acute distress noted. Continue plan of care.
[2019-01-26 20:00] VITALS: BP 119/55
[2019-01-27 04:57] VITALS: BP 121/63
--- NOTE | 2019-01-27 06:03 | NUR ---
PATIENT AWAKE IN BED. KEPT NPO ORDERED. SUCTION AND ORAL CARE PROVIDED. PATIENT REPOSITIONED TO SIDE EVERY 2 HOURS. NO S/S OF PAIN OR DISCOMFORT. NO RESP. DISTRESS NOTED. IVF INFUSING WELL. CALL LIGHT IN REACH. ALL NEEDS ATTENDED. WILL CONTINUE TO MONITOR AND ASSESS.
[2019-01-27] MEDS: PIPERACILLIN/TAZOBACTAM/D5W 3.375 G in PREMIXED 1 EACH IV SCH ×3 (06:18→22:08)
--- NOTE | 2019-01-27 07:30 | NUR ---
Patient calm and comfortable laying in bed ; call light with in reach, all safety devices in place.
[2019-01-27] MEDS: IV NS 1000 ML 1,000 ML IV PRN ×2 (08:36→22:09)
[2019-01-27] MEDS ORDERED: BARIUM SULFATE 148 GM SUSP.RECON PO ONE (10:00)
[2019-01-27] MEDS ORDERED: BARIUM SULFATE 240 ML ORAL.SUSP PO ONE (10:00)
[2019-01-27 11:18] VITALS: BP 102/52
[2019-01-27 11:58] LABS: CARBON DIOXIDE 30 mmol/L (21-32); CHLORIDE 106 mmol/L (98-107); CREATININE 0.8 mg/dL (0.6-1.3); GLUCOSE 97 mg/dL (74-106); MAGNESIUM 1.8 mg/dL (1.8-2.4); POTASSIUM 3.5 mmol/L (3.5-5.1); UREA NITROGEN, BLOOD 13 mg/dL (7-18)
[2019-01-27 12:04] LABS: BASOPHILS # (AUTO) 0.1 K/uL (0.0-8.0); BASOPHILS % (AUTO) 0.3 % (0.0-2.0); EOSINOPHILS % (AUTO) 0.1 % (0.0-7.0); HEMATOCRIT 39.6 % (36.7-47.1); HEMOGLOBIN 12.8 g/dL (12.5-16.3); LYMPHOCYTES # (AUTO) 1.1 K/uL (20.0-40.0); LYMPHOCYTES % (AUTO) 6.3 % (20.5-51.5); MEAN CORPUSCULAR HEMOGLOBIN 27.7 uug (23.8-33.4); MEAN CORPUSCULAR HGB CONC 32 g/dL (32.5-36.3); MONOCYTES # (AUTO) 0.8 K/uL (2.0-10.0); MONOCYTES % (AUTO) 4.6 % (0.0-11.0); NEUTROPHILS # (AUTO) 15.8 K/uL (1.8-8.9); NEUTROPHILS % (AUTO) 88.7 % (38.5-71.5); PLATELET COUNT (AUTO) 222 K/uL (152-348); WHITE BLOOD COUNT (AUTO) 17.8 K/uL (3.6-10.2)
--- NOTE | 2019-01-27 14:16 | NUR ---
CLINICAL PHARMACY NOTE:VANCOMYCIN DOSING request for vancomycin dosing on 73 y/o male 177.8 cm 77.11kg for suspected infection Temp 98.4 BUN 13 Scr 0.8 WBC 17.8 also receiving Zosyn. start vancomycin 1gm ivpb [id number] estimated trough 14.7. Will order trough level prior to 4th dose. Will continue to monitor.
--- NOTE | 2019-01-27 14:36 | NUR ---
WOUND CARE CONSULT: PT PRESENTS WITH LOWER EXTREMITY CONTRACTURES, RT UPPER BACK INTACT DEEP TISSUE INJURY, RT HIP SCAR WITH BLANCHABLE REDNESS, SACRAL SCARRING EXTENDING TO BUTTOCKS AND RT LOWER LEG SKIN TEAR, LEFT HEEL DEEP TISSUE INJURY, ALL PRESENT ON ADMISSION. RECOMMEND DPM CONSULT. DR CRAMER NOTIFIED OF CONSULT REQUEST. ALL SKIN PROTECTION AND WOUND CARE RECOMMENDATIONS DISCUSSED WITH NURSING STAFF. PT IS INCONTINENT. PT [facility] FIRST [facility]. DEFER TO DPM FOR LOWER EXTREMITIES. WILL SEE PRN. SWAN IN AGREEMENT WITH PLAN OF CARE. CURRENT CEDRICK SCORE IS 6. Addendum: 01/27/19 at 1439 by ALEJANDRA LEW RN Amended: Links added.
[2019-01-27 15:25] VITALS: BP 108/56
[2019-01-27] MEDS: VANCOMYCIN IV 1 G in PREMIXED 0 EACH IV SCH (19:19)
--- NOTE | 2019-01-27 19:38 | NUR ---
Patient calm and comfortable with no signs of stress ; patient with stable vital signs .
[2019-01-27 20:11] VITALS: BP 113/61
[2019-01-27] MEDS: CARBIDOPA/LEVODOPA 25-100MG TABLET NG SCH ×2 (20:16→20:17)
[2019-01-27] MEDS ORDERED: CARBAMAZEPINE 100 MG TAB.CHEW PO SCH (21:00)
[2019-01-28 05:03] VITALS: BP 105/48
[2019-01-28] MEDS: PIPERACILLIN/TAZOBACTAM/D5W 3.375 G in PREMIXED 1 EACH IV SCH ×3 (05:28→21:09)
[2019-01-28 06:40] LABS: BASOPHILS % (AUTO) 0.6 % (0.0-2.0); EOSINOPHILS % (AUTO) 0.4 % (0.0-7.0); HEMOGLOBIN 12.1 g/dL (12.5-16.3); LYMPHOCYTES % (AUTO) 6.8 % (20.5-51.5); MEAN CORPUSCULAR HEMOGLOBIN 28.1 uug (23.8-33.4); MEAN CORPUSCULAR HGB CONC 33 g/dL (32.5-36.3); MEAN CORPUSCULAR VOLUME 85.6 fL (73.0-96.2); NEUTROPHILS % (AUTO) 87.2 % (38.5-71.5); PLATELET COUNT (AUTO) 222 K/uL (152-348); RED BLOOD CELL COUNT(AUTO) 4.32 MIL/uL (4.06-5.63); WHITE BLOOD COUNT (AUTO) 10.6 K/uL (3.6-10.2)
[2019-01-28 06:41] LABS: BASOPHILS # (AUTO) 0.1 K/uL (0.0-8.0); LYMPHOCYTES # (AUTO) 0.7 K/uL (20.0-40.0); MONOCYTES # (AUTO) 0.5 K/uL (2.0-10.0); NEUTROPHILS # (AUTO) 9.2 K/uL (1.8-8.9)
[2019-01-28 06:57] LABS: CARBON DIOXIDE 28 mmol/L (21-32); CHLORIDE 110 mmol/L (98-107); CREATININE 0.7 mg/dL (0.6-1.3); GLUCOSE 90 mg/dL (74-106); MAGNESIUM 1.8 mg/dL (1.8-2.4); PHOSPHOROUS 3.1 mg/dL (2.5-4.9); POTASSIUM 3.3 mmol/L (3.5-5.1); UREA NITROGEN, BLOOD 13 mg/dL (7-18)
--- NOTE | 2019-01-28 07:28 | NUR ---
END OF SHIFT REPORT Pt rested well in between care; incontinence care done; oral care done; deep suction done via oropharyngeal and nasopharyngeal with whitish secretions; lips kept moist; Dr Tarango came and ordered PEG placement for Wednesday; consent still needed; will ff up if pt has DPOA or next of kin;
[2019-01-28] MEDS: CARBIDOPA/LEVODOPA 25-100MG TABLET NG SCH ×4 (08:39→20:28)
[2019-01-28 08:42] VITALS: BP 102/82
[2019-01-28] MEDS: VANCOMYCIN IV 1 G in PREMIXED 0 EACH IV SCH ×2 (08:54→21:58)
--- NOTE | 2019-01-28 09:28 | NUR ---
CLINICAL PHARMACY NOTE:VANCOMYCIN DOSING To continue vancomycin dosing on 73 y/o male 177.8 cm 77.11kg for suspected infection Temp 97.9 BUN 13 Scr 0.7 WBC 10.6 also receiving Zosyn. Will continue vancomycin 1gm ivpb [id number] estimated trough 14.7. Will order trough level prior to 4th dose, due tomorrow am at 1130. Will check trough when available and adjust as needed. Will continue to monitor.
[2019-01-28 11:30] VITALS: BP 115/46
[2019-01-28 11:44] VITALS: BP 115/46
[2019-01-28] MEDS: IV NS 1000 ML 1,000 ML IV PRN (13:09)
[2019-01-28] MEDS: POTASSIUM CHLORIDE 50 ML IV SCH ×2 (13:12→14:17)
[2019-01-28 15:10] VITALS: BP 106/52
[2019-01-28] MEDS: JEVITY 1.2 1000 ML LIQUID GT PRN (18:47)
--- NOTE | 2019-01-28 18:53 | NUR ---
Patient has been cooperative with care, all needs met, patient started on tube feeding @30cc/hr. NO distress noted throughout shift, all needs met. Wound care performed and replaced condom catheter due to leakage. Currently patient in bed, awake and no distress noted.
--- NOTE | 2019-01-28 19:20 | NUR ---
Receive patient awake in bed, awake, noted non-verbal and bed bound. Not in any form of distress. With oxygen support at 2lpm via nasal cannula, tolerated and maintained. Noted with NGT to ongoing tube feeding of Jevity, tolerated, no residuals noted. Strict aspiration precautions observed, head of bed kept elevated. Seizure precautions observed. Will increase rate of feeding if tolerated as ordered. Noted with air mattress and DVT pumps in place. Bed in low position, locked, side rails up x 2 for safety. Will continue to monitor.
[2019-01-28 20:14] VITALS: BP 107/55
--- NOTE | 2019-01-29 01:00 | NUR ---
Tube feeding at 30mls/hr, tolerated, no residuals noted, not bloated. Tube feeding rate increased to 60mls/hr. Will continue to monitor.
[2019-01-29 05:00] VITALS: BP 107/54
[2019-01-29] MEDS: IV NS 1000 ML 1,000 ML IV PRN ×2 (05:02→17:59)
[2019-01-29] MEDS: PIPERACILLIN/TAZOBACTAM/D5W 3.375 G in PREMIXED 1 EACH IV SCH ×3 (05:02→22:15)
[2019-01-29 05:49] LABS: BASOPHILS # (AUTO) 0.1 K/uL (0.0-8.0); BASOPHILS % (AUTO) 0.7 % (0.0-2.0); EOSINOPHILS % (AUTO) 0.4 % (0.0-7.0); HEMATOCRIT 37.8 % (36.7-47.1); HEMOGLOBIN 12.4 g/dL (12.5-16.3); LYMPHOCYTES # (AUTO) 0.5 K/uL (20.0-40.0); MEAN CORPUSCULAR HGB CONC 33 g/dL (32.5-36.3); MEAN CORPUSCULAR VOLUME 85.1 fL (73.0-96.2); MONOCYTES # (AUTO) 0.7 K/uL (2.0-10.0); MONOCYTES % (AUTO) 5.7 % (0.0-11.0); NEUTROPHILS # (AUTO) 11.6 K/uL (1.8-8.9); NEUTROPHILS % (AUTO) 89.2 % (38.5-71.5); PLATELET COUNT (AUTO) 249 K/uL (152-348); RED BLOOD CELL COUNT(AUTO) 4.44 MIL/uL (4.06-5.63)
--- NOTE | 2019-01-29 05:57 | NUR ---
Patient slept intermittently throughout the night. No distress noted. Now with tube feeding at 60mls/hr, tolerated, no residuals noted, patient not bloated. Oral care rendered. Ensured safety and comfort. No other untoward events noted. Noted patient for PEG placement on Wednesday, consent signed by two MD's attached on the chart.
--- NOTE | 2019-01-29 08:00 | NUR ---
received awake but aphasic, ngt in place with tube fdg jevity 1.2 at 60ml/hr-no residual noted, head of bed elevated, aspiration precaution observed, oral care done, on 2l/nc cannula-no sob noted, repositioned to right side, safety measures maintained
[2019-01-29] MEDS: CARBIDOPA/LEVODOPA 25-100MG TABLET NG SCH ×4 (08:32→21:07)
[2019-01-29 09:00] LABS: CREATININE 0.6 mg/dL (0.6-1.3); MAGNESIUM 1.5 mg/dL (1.8-2.4); PHOSPHOROUS 2.7 mg/dL (2.5-4.9)
[2019-01-29 09:01] LABS: CARBON DIOXIDE 26 mmol/L (21-32); CHLORIDE 105 mmol/L (98-107); GLUCOSE 141 mg/dL (74-106); POTASSIUM 3.4 mmol/L (3.5-5.1); UREA NITROGEN, BLOOD 10 mg/dL (7-18)
[2019-01-29] MEDS: MULTIVIT, IRON, MIN NO. 8, FA TABLET PO SCH (10:25)
[2019-01-29 11:02] VITALS: BP 117/63
[2019-01-29] MEDS ORDERED: POTASSIUM CHLORIDE 20 MEQ TAB.PRT.SR PO ONE (11:45)
--- NOTE | 2019-01-29 12:00 | NUR ---
condom cath not in place, washed and kept clean and dry, condom cath replaced, repositioned to side with pillows, heels off loaded, NGT in place-tolerating tube fdg well, no residuals, fdg at 80ml/hr (goal rate), aspiration precaution observed
[2019-01-29] MEDS: MAGNESIUM SULFATE/D5W 100 ML IV SCH ×2 (12:21→15:56)
--- NOTE | 2019-01-29 12:44 | NUR ---
CLINICAL PHARMACY NOTE:VANCOMYCIN DOSING To continue vancomycin dosing on 73 y/o male 177.8 cm 77.11kg for suspected infection Temp 98.9 BUN 10 Scr 0.6 WBC 13 also receiving Zosyn. Trough today at 1130: 9.1 Assessment/Plan Based on trough, will adjust regimen to 1gm q10h for new estimated trough of 15.2, second dose tonight at 2300. Will order trough before 4th scheduled dose (not ordered yet). Will follow and dose per level if renal function were to change. Otherwise will follow levels for further dosing.
[2019-01-29] MEDS: VANCOMYCIN IV 1 G in PREMIXED 0 EACH IV SCH ×2 (13:15→23:12)
[2019-01-29 15:21] VITALS: BP 122/65
--- NOTE | 2019-01-29 16:00 | NUR ---
temp 100.6 rectal, cooling measures given, Ingrid Carreon TRAY SERVER informed.
[2019-01-29] MEDS: CHLORHEXIDINE GLUCONATE 15 ML MOUTHWASH MM SCH (16:20)
[2019-01-29] MEDS: ACETAMINOPHEN 325 MG TABLET PO PRN (16:35)
[2019-01-29 17:41] VITALS: BP 125/67
--- NOTE | 2019-01-29 17:41 | NUR ---
temperature rechecked- 97.4, repositioned, tube fdg tolerated well, no residuals, no acute distress noted, all needs attended to, safety measures maintained
[2019-01-29] MEDS: JEVITY 1.2 1000 ML LIQUID GT PRN (17:52)
[2019-01-29 19:45] VITALS: BP 116/64
--- NOTE | 2019-01-29 19:46 | NUR ---
Called pharmacy to aski if Depakote ER can be crushed and given via NG tube, was advised to report to the clinician and obtain new orders. Will call ASHLEY Carreon for change of Rx
--- NOTE | 2019-01-29 20:03 | NUR ---
Paged Ingrid Carreon re: Nanette HERNÁNDEZ. waiting for a callback.
--- NOTE | 2019-01-29 20:40 | NUR ---
Lauri RAMIREZ called back, will change the Depakote order.
[2019-01-29] MEDS ORDERED: DIVALPROEX ER 500 MG TAB.SR.24H PO SCH (21:00)
[2019-01-29] MEDS ORDERED: DIVALPROEX ER 250 MG TAB.SR.24H PO SCH (21:00)
--- NOTE | 2019-01-29 23:25 | NUR ---
called Ingrid Carreon re: Nanette again, was advised to hold the 2100 dose.
--- NOTE | 2019-01-30 00:01 | NUR ---
patient is NPO at this time, tube feeding is stopped, NG tube flushed.
--- NOTE | 2019-01-30 00:49 | NUR ---
Condom catheter is off, patient was cleaned, linen changed, repositioned, new condom catheter applied.
[2019-01-30] MEDS: PIPERACILLIN/TAZOBACTAM/D5W 3.375 G in PREMIXED 1 EACH IV SCH ×3 (05:39→22:05)
[2019-01-30 06:00] VITALS: BP 123/66
--- NOTE | 2019-01-30 06:20 | NUR ---
Patient slept well at night, condom catheter is not leaking, urine is draining freely into the bag, clear joe color. No fever or acute distress noted during the shift. patient was NPO and feeding was off after midnight.
[2019-01-30] MEDS: IV NS 1000 ML 1,000 ML IV PRN ×2 (06:25→21:35)
[2019-01-30 06:34] LABS: CARBON DIOXIDE 30 mmol/L (21-32); CHLORIDE 102 mmol/L (98-107); CREATININE 0.5 mg/dL (0.6-1.3); GLUCOSE 104 mg/dL (74-106); MAGNESIUM 1.8 mg/dL (1.8-2.4); POTASSIUM 3.4 mmol/L (3.5-5.1); UREA NITROGEN, BLOOD 6 mg/dL (7-18)
[2019-01-30 07:10] LABS: BASOPHILS # (AUTO) 0.1 K/uL (0.0-8.0); BASOPHILS % (AUTO) 0.7 % (0.0-2.0); EOSINOPHILS # (AUTO) 0.2 K/uL (0.0-0.7); EOSINOPHILS % (AUTO) 1.8 % (0.0-7.0); HEMATOCRIT 37.1 % (36.7-47.1); HEMOGLOBIN 12.2 g/dL (12.5-16.3); LYMPHOCYTES # (AUTO) 0.7 K/uL (20.0-40.0); LYMPHOCYTES % (AUTO) 6.6 % (20.5-51.5); MEAN CORPUSCULAR HGB CONC 33 g/dL (32.5-36.3); MEAN CORPUSCULAR VOLUME 84.9 fL (73.0-96.2); MONOCYTES # (AUTO) 0.7 K/uL (2.0-10.0); MONOCYTES % (AUTO) 5.9 % (0.0-11.0); NEUTROPHILS # (AUTO) 9.5 K/uL (1.8-8.9); PLATELET COUNT (AUTO) 245 K/uL (152-348); RED BLOOD CELL COUNT(AUTO) 4.37 MIL/uL (4.06-5.63); WHITE BLOOD COUNT (AUTO) 11.2 K/uL (3.6-10.2)
--- NOTE | 2019-01-30 07:30 | NUR ---
Patient calm and comfortable laying in bed with no signs of distress. Patient with stable vital signs , all safety devices with in reach.
--- NOTE | 2019-01-30 08:40 | NUR ---
CLINICAL PHARMACY NOTE:VANCOMYCIN DOSING To continue vancomycin dosing on 73 y/o male 177.8 cm 77.11kg for suspected infection Temp 98.4 BUN 6 Scr 0.5 WBC 11.2 Trough on 01/29 at 1130: 9.1 Trough on 01/30 at 1830: pending Assessment/Plan Will continue same dose of vanco 1gm IVBB q10h for today. 3rd dose today at 0900. Will order trough before 4th scheduled dose (ordered for today at 1830). Pharmacy shall review the level & adjust the dose if needed. Will follow. Addendum: 01/30/19 at 1850 by CLAUS BAILEY ADM Vancomycin trough was 15.8 (within therapeutic range) will continue with the same dose vancomycin
[2019-01-30] MEDS ORDERED: IV NORMAL SALINE 1000 ML BAG IV ONE (08:55)
[2019-01-30] MEDS ORDERED: PROPOFOL 200 MG/20 ML BOTTLE IV ONE (08:55)
[2019-01-30] MEDS ORDERED: IRR NORMAL SALINE IRRIGATION 1,000 ML BOTTLE IR ONE (08:55)
[2019-01-30] MEDS: CHLORHEXIDINE GLUCONATE 15 ML MOUTHWASH MM SCH ×2 (09:00→17:39)
[2019-01-30] MEDS: MULTIVIT, IRON, MIN NO. 8, FA TABLET PO SCH (09:00)
[2019-01-30] MEDS: DOCUSATE SODIUM 100 MG/10 ML LIQUID UDC GT SCH (09:00)
[2019-01-30] MEDS ORDERED: DOCUSATE SODIUM 100 MG CAPSULE PO SCH (09:00)
[2019-01-30] MEDS: CARBIDOPA/LEVODOPA 25-100MG TABLET NG SCH ×4 (09:00→21:15)
[2019-01-30] MEDS ORDERED: SENNOSIDES/DOCUSATE SODIUM TABLET PO SCH (09:00)
[2019-01-30] MEDS: VANCOMYCIN IV 1 G in PREMIXED 0 EACH IV SCH ×2 (09:01→20:36)
[2019-01-30] MEDS: VALPROIC ACID 250 MG/5 ML LIQUID UDC GT SCH ×2 (10:47→21:16)
[2019-01-30] MEDS ORDERED: DIVALPROEX 250 MG TABLET.DR PO SCH (13:00)
[2019-01-30] MEDS ORDERED: POTASSIUM CHLORIDE 20 MEQ POWDER PACKET GT ONE (14:45)
[2019-01-30] MEDS: JEVITY 1.2 1000 ML LIQUID GT PRN (15:51)
--- NOTE | 2019-01-30 19:30 | NUR ---
Receive patient awake in bed, noted non-verbal and bed bound. Not in any form of distress. With oxygen support at 4lpm via nasal cannula, tolerated and maintained. Noted with newly placed PEG to ongoing tube feeding of Jevity, tolerated, no residuals noted. Peg insertion site, clean and dry. Strict aspiration precautions observed, head of bed kept elevated. Seizure precautions observed. Will increase rate of feeding if tolerated as ordered. Noted with air mattress and DVT pumps in place. Bed in low position, locked, side rails up x 2 for safety. Will continue to monitor.
[2019-01-30 20:00] VITALS: BP 126/70
[2019-01-31] MEDS: VANCOMYCIN IV 1 G in PREMIXED 0 EACH IV SCH ×2 (04:02→16:00)
[2019-01-31] MEDS: PIPERACILLIN/TAZOBACTAM/D5W 3.375 G in PREMIXED 1 EACH IV SCH ×3 (05:36→22:05)
[2019-01-31 06:19] VITALS: BP 125/70
--- NOTE | 2019-01-31 06:20 | NUR ---
Patient slept intermittently throughout the night. No distress noted. Now with tube feeding at 80mls/hr, tolerated, no residuals noted, patient not bloated. Oral care rendered. Ensured safety and comfort. No other untoward events noted.
[2019-01-31 06:47] LABS: BASOPHILS # (AUTO) 0.1 K/uL (0.0-8.0); BASOPHILS % (AUTO) 0.9 % (0.0-2.0); EOSINOPHILS # (AUTO) 0.1 K/uL (0.0-0.7); EOSINOPHILS % (AUTO) 1.3 % (0.0-7.0); HEMATOCRIT 40.2 % (36.7-47.1); LYMPHOCYTES # (AUTO) 0.8 K/uL (20.0-40.0); MEAN CORPUSCULAR HEMOGLOBIN 27.7 uug (23.8-33.4); MEAN CORPUSCULAR HGB CONC 32 g/dL (32.5-36.3); MEAN CORPUSCULAR VOLUME 85.4 fL (73.0-96.2); MONOCYTES # (AUTO) 0.5 K/uL (2.0-10.0); MONOCYTES % (AUTO) 4.8 % (0.0-11.0); NEUTROPHILS # (AUTO) 8.5 K/uL (1.8-8.9); PLATELET COUNT (AUTO) 266 K/uL (152-348); RED BLOOD CELL COUNT(AUTO) 4.71 MIL/uL (4.06-5.63)
--- NOTE | 2019-01-31 07:00 | NUR ---
RECEIVED PATIENT ASLEEP, NO DISTRESS NOTED. CALL LIGHT WITHIN REACH, BED IN LOWEST POSITION SAFETY ALARM ON.
[2019-01-31 07:05] LABS: CARBON DIOXIDE 32 mmol/L (21-32); CHLORIDE 105 mmol/L (98-107); CREATININE 0.7 mg/dL (0.6-1.3); GLUCOSE 135 mg/dL (74-106); MAGNESIUM 2.1 mg/dL (1.8-2.4); PHOSPHOROUS 3.3 mg/dL (2.5-4.9); POTASSIUM 4.3 mmol/L (3.5-5.1); UREA NITROGEN, BLOOD 7 mg/dL (7-18)
[2019-01-31] MEDS ORDERED: SENNOSIDES/DOCUSATE SODIUM TABLET PO SCH (09:00)
--- NOTE | 2019-01-31 09:00 | NUR ---
CLINICAL PHARMACY NOTE:VANCOMYCIN DOSING S: To continue vancomycin dosing on 73 y/o male 177.8 cm 77.11kg for suspected infection O: Temp 98 BUN 7 Scr 0.7 WBC 10 Trough on 01/29 at 1130: 9.1 Trough on 01/30 at 1830: 15.8 Assessment/Plan Since vanco trough level is within therapeutic range, will continue same dose of vanco 1gm IVBB q10h for now. Will monitor renal function & adjust the dose if needed. Will follow.
[2019-01-31] MEDS: DOCUSATE SODIUM 100 MG/10 ML LIQUID UDC GT SCH (09:27)
[2019-01-31] MEDS: VALPROIC ACID 250 MG/5 ML LIQUID UDC GT SCH ×2 (09:27→21:37)
[2019-01-31] MEDS: MULTIVIT, IRON, MIN NO. 8, FA TABLET PO SCH (09:28)
[2019-01-31] MEDS: CARBIDOPA/LEVODOPA 25-100MG TABLET NG SCH ×4 (09:28→21:37)
[2019-01-31] MEDS: CHLORHEXIDINE GLUCONATE 15 ML MOUTHWASH MM SCH ×2 (09:28→17:45)
[2019-01-31] MEDS: JEVITY 1.2 1000 ML LIQUID GT PRN (12:25)
[2019-01-31 12:47] VITALS: BP 129/81
[2019-01-31] MEDS: IV NS 1000 ML 1,000 ML IV PRN (15:50)
[2019-01-31 16:00] VITALS: BP 121/71
--- NOTE | 2019-01-31 18:56 | NUR ---
Patient has been cooperative with care, no distress noted throughout shift, all needs met. frequent turning, and repositioning. Bed in low position, side rails up x2, bed alarm on.
[2019-01-31 19:30] VITALS: BP 115/58
--- NOTE | 2019-01-31 19:30 | NUR ---
patient received lying in bed. no signs of acute distress. v/s stable. safety and comfort measures provided. will continue plan of care.
[2019-01-31] MEDS: CULTURELLE CAPSULE PEG SCH (21:37)
[2019-02-01] MEDS: VANCOMYCIN IV 1 G in PREMIXED 0 EACH IV SCH ×3 (00:57→20:02)
[2019-02-01] MEDS: JEVITY 1.2 1000 ML LIQUID GT PRN ×2 (00:59→21:19)
[2019-02-01 04:14] VITALS: BP 108/58
[2019-02-01] MEDS: PIPERACILLIN/TAZOBACTAM/D5W 3.375 G in PREMIXED 1 EACH IV SCH ×3 (05:16→21:46)
--- NOTE | 2019-02-01 05:22 | NUR ---
patient slept intermittently. no signs of acute distress. safety and comfort measures provided. temperature rechecked and stable at 98.3 from 99.4 all medications administered and tolerated well through PEG. will endorse care accordingly to morning nurse.
[2019-02-01] MEDS: IV NS 1000 ML 1,000 ML IV PRN ×2 (06:03→23:44)
[2019-02-01 09:00] VITALS: BP 120/70
[2019-02-01] MEDS: CARBIDOPA/LEVODOPA 25-100MG TABLET NG SCH ×4 (09:35→20:03)
[2019-02-01] MEDS: DOCUSATE SODIUM 100 MG/10 ML LIQUID UDC GT SCH (09:35)
[2019-02-01] MEDS: CHLORHEXIDINE GLUCONATE 15 ML MOUTHWASH MM SCH ×2 (09:35→17:39)
[2019-02-01] MEDS: VALPROIC ACID 250 MG/5 ML LIQUID UDC GT SCH ×2 (09:36→20:03)
[2019-02-01] MEDS: MULTIVIT, IRON, MIN NO. 8, FA TABLET PO SCH (09:36)
[2019-02-01] MEDS: CULTURELLE CAPSULE PEG SCH ×2 (09:36→20:03)
--- NOTE | 2019-02-01 13:47 | NUR ---
CLINICAL PHARMACY NOTE:VANCOMYCIN DOSING S: To continue vancomycin dosing on 73 y/o male 177.8 cm 77.11kg for suspected infection O: Temp 99.4 BUN 7 (01/31) Scr 0.7 (01/31) WBC 10 (01/31) Trough on 01/29 at 1130: 9.1 Trough on 01/30 at 1830: 15.8 Assessment/Plan Since vanco trough level is within therapeutic range and renal fxn remains stable, will continue same dose of vanco 1gm IVBB q10h for now. Will monitor renal function & adjust the dose if needed. Will follow.
[2019-02-01 17:00] VITALS: BP 122/66
--- NOTE | 2019-02-01 19:30 | NUR ---
RECEIVED PT ON BED. PT SHOWS NO SIGNS OF ACUTE DISTRESS. PT IV INTACT. G-TUBE INTACT. PT ON NASAL CANULA. SAFETY AND COMFORT PROVIDED. WILL CONTINUE TO MONITOR.
[2019-02-01 20:00] VITALS: BP 125/76
[2019-02-01] MEDS: ACETAMINOPHEN 325 MG TABLET PO PRN (20:03)
[2019-02-02 04:59] VITALS: BP 105/60
[2019-02-02] MEDS: PIPERACILLIN/TAZOBACTAM/D5W 3.375 G in PREMIXED 1 EACH IV SCH ×3 (05:03→21:27)
[2019-02-02] MEDS: VANCOMYCIN IV 1 G in PREMIXED 0 EACH IV SCH (06:19)
--- NOTE | 2019-02-02 06:25 | NUR ---
PT SLEPT THROUGHOUT THE SHIFT. PRESCRIBED MEDICATION GIVEN AND PT TOLERATED IT WELL. PT TURNED AND REPOSITIONED. IV INTACT AND GTUBE INTACT. SAFETY AND COMFORT PROVIDED. ALL NEEDS ARE MET WILL ENDORSE ACCORDINGLY TO INCOMING NURSE FOR CONTINUITY OF CARE.
[2019-02-02 06:33] LABS: HEMATOCRIT 38.2 % (36.7-47.1); HEMOGLOBIN 12.7 g/dL (12.5-16.3); MEAN CORPUSCULAR HEMOGLOBIN 28.4 uug (23.8-33.4); MEAN CORPUSCULAR HGB CONC 33 g/dL (32.5-36.3); MEAN CORPUSCULAR VOLUME 85.3 fL (73.0-96.2); PLATELET COUNT (AUTO) 274 K/uL (152-348); RED BLOOD CELL COUNT(AUTO) 4.48 MIL/uL (4.06-5.63); WHITE BLOOD COUNT (AUTO) 7.8 K/uL (3.6-10.2)
[2019-02-02 06:47] LABS: ALANINE AMINOTRANSFERASE 11 U/L (16-63); ALKALINE PHOSPHATASE 58 U/L (50-136); ASPARTATE AMINOTRANSFERASE 11 U/L (15-37); BILIRUBIN,TOTAL 0.4 mg/dL (0.2-1.0); CARBON DIOXIDE 33 mmol/L (21-32); CHLORIDE 106 mmol/L (98-107); CREATININE 0.7 mg/dL (0.6-1.3); GLUCOSE 128 mg/dL (74-106); MAGNESIUM 2.2 mg/dL (1.8-2.4); PHOSPHOROUS 3.2 mg/dL (2.5-4.9); POTASSIUM 3.8 mmol/L (3.5-5.1); TOTAL PROTEIN, SERUM 6.2 g/dL (6.4-8.2); UREA NITROGEN, BLOOD 10 mg/dL (7-18)
--- NOTE | 2019-02-02 07:30 | NUR ---
Patient calm non verbal ; with no signs of distress ; patient call light with in reach.and safety devices in place.
[2019-02-02 07:52] LABS: LYMPHOCYTES % (MANUAL) 12 % (20-40); NEUTROPHILS % (MANUAL) 79 % (42-75)
[2019-02-02 07:53] LABS: BASOPHILS % (MANUAL) 1 % (0-2); EOSINOPHILS % (MANUAL) 3 % (0-8); MONOCYTES % (MANUAL) 6 % (2-10)
[2019-02-02] MEDS: CULTURELLE CAPSULE PEG SCH ×2 (08:19→21:26)
[2019-02-02] MEDS: MULTIVIT, IRON, MIN NO. 8, FA TABLET PO SCH (08:19)
[2019-02-02] MEDS: CARBIDOPA/LEVODOPA 25-100MG TABLET NG SCH ×4 (08:19→21:26)
[2019-02-02] MEDS: DOCUSATE SODIUM 100 MG/10 ML LIQUID UDC GT SCH (08:19)
[2019-02-02] MEDS: VALPROIC ACID 250 MG/5 ML LIQUID UDC GT SCH ×2 (08:19→21:26)
[2019-02-02] MEDS: CHLORHEXIDINE GLUCONATE 15 ML MOUTHWASH MM SCH ×2 (08:20→16:19)
[2019-02-02 11:03] VITALS: BP 108/60
--- NOTE | 2019-02-02 13:04 | NUR ---
CLINICAL PHARMACY NOTE:VANCOMYCIN DOSING S: To continue vancomycin dosing on 73 y/o male 177.8 cm 77.11kg for possible asp PNA with early sepsis. O: Temp 98.6 BUN 10 Scr 0.7 WBC 7.8 Trough on 01/30 at 1830: 15.8 Assessment/Plan Since renal function is stable, will continue same dose of vanco 1gm IVPB q10h for now. Will monitor renal function & adjust the dose if needed. Will follow.
[2019-02-02] MEDS: JEVITY 1.2 1000 ML LIQUID GT PRN (14:20)
[2019-02-02 15:09] VITALS: BP 113/62
[2019-02-02] MEDS: IV NS 1000 ML 1,000 ML IV PRN (15:53)
--- NOTE | 2019-02-02 19:14 | NUR ---
Patient calm and comfortable ; with no signs of distress.
[2019-02-02 20:00] VITALS: BP 136/67
--- NOTE | 2019-02-02 20:00 | NUR ---
Pt. resting in bed, calm, alert to self but confused. IV in R hand 20 gauge intact, patent. G tube in place jevity feeding. Nasal canula 4 L. Safety measures in place. Call light within reach. Will suction as needed. Will continue to monitor.
[2019-02-03] MEDS: JEVITY 1.2 1000 ML LIQUID GT PRN (03:40)
[2019-02-03 04:50] VITALS: BP 114/66
[2019-02-03] MEDS: PIPERACILLIN/TAZOBACTAM/D5W 3.375 G in PREMIXED 1 EACH IV SCH ×3 (05:13→22:36)
[2019-02-03] MEDS: IV NS 1000 ML 1,000 ML IV PRN ×2 (05:37→20:31)
--- NOTE | 2019-02-03 06:05 | NUR ---
Pt. calm resting in bed. Pt. slept intermittently throughout night. IV in R wrist 20 gauge intact patent. Pt. on 4 L NC. Changed dressings applied new xeroform and mepilex. Suction pt. as needed. Flushed gtube as ordered. G tube feeding in place. All medications given. Safety measures in place. Comfort measures provided. Call light within reach. Will endorse to AM nurse
[2019-02-03] MEDS: MULTIVIT, IRON, MIN NO. 8, FA TABLET PO SCH (09:25)
[2019-02-03] MEDS: CULTURELLE CAPSULE PEG SCH ×2 (09:25→21:24)
[2019-02-03] MEDS: CARBIDOPA/LEVODOPA 25-100MG TABLET NG SCH ×4 (09:25→21:24)
[2019-02-03] MEDS: DOCUSATE SODIUM 100 MG/10 ML LIQUID UDC GT SCH (09:26)
[2019-02-03] MEDS: VALPROIC ACID 250 MG/5 ML LIQUID UDC GT SCH ×2 (09:26→21:24)
[2019-02-03] MEDS: CHLORHEXIDINE GLUCONATE 15 ML MOUTHWASH MM SCH ×2 (09:26→16:21)
[2019-02-03 11:00] VITALS: BP 111/70
--- NOTE | 2019-02-03 12:00 | NUR ---
Patient has been cooperative with care, no distress noted throughout shift, all needs met. Wound care Tx done. frequent turning, and repositioning. Bed in low position, side rails up x2, bed alarm on.
--- NOTE | 2019-02-03 14:42 | NUR ---
patient received sleeping in bed, no acute distress noted, g-tube intact
--- NOTE | 2019-02-03 15:00 | NUR ---
Received patient calm non verbal ; with no signs of distress ; patient call light with in reach.and safety devices in place. Addendum: 02/03/19 at 1503 by LILIBETH ZUNIGA RN Received @ 0730 patient calm non verbal ; with no signs of distress ; patient call light with in reach.and safety devices in place.
--- NOTE | 2019-02-03 15:04 | NUR ---
Report given to incoming RN.
--- NOTE | 2019-02-03 15:49 | NUR ---
patient is in bed, awake, no sob, resp even nonlabored,skin warm and dry to touch, g-tube intact, no acute distress noted
[2019-02-03 17:00] VITALS: BP 116/65
[2019-02-03 20:08] VITALS: BP 119/65
--- NOTE | 2019-02-03 21:58 | NUR ---
Patient has a skin breakdown behind the left ear. Cushion was added to reduce pressure from the oxygen tubing
[2019-02-04 05:06] VITALS: BP 118/67
[2019-02-04] MEDS: PIPERACILLIN/TAZOBACTAM/D5W 3.375 G in PREMIXED 1 EACH IV SCH ×3 (05:28→22:32)
--- NOTE | 2019-02-04 06:57 | NUR ---
Patient tolerated tube feeding well with no residual. No fever or distress noted. Comfort and safety measures are in place.
--- NOTE | 2019-02-04 07:37 | NUR ---
Awake, non verbal. O2 at 2L/NC. G Tube feedings off. IVF infusing. Incontinence care done with sponge bath. Repositioned comfortably
[2019-02-04] MEDS: CARBIDOPA/LEVODOPA 25-100MG TABLET NG SCH ×4 (08:54→20:48)
[2019-02-04] MEDS: VALPROIC ACID 250 MG/5 ML LIQUID UDC GT SCH ×2 (08:54→20:48)
[2019-02-04] MEDS: CULTURELLE CAPSULE PEG SCH ×2 (08:54→20:48)
[2019-02-04] MEDS: MULTIVIT, IRON, MIN NO. 8, FA TABLET PO SCH (08:54)
[2019-02-04] MEDS: CHLORHEXIDINE GLUCONATE 15 ML MOUTHWASH MM SCH ×2 (08:54→16:40)
[2019-02-04] MEDS: DOCUSATE SODIUM 100 MG/10 ML LIQUID UDC GT SCH (08:54)
[2019-02-04 09:30] VITALS: BP 134/70
--- NOTE | 2019-02-04 10:00 | NUR ---
Secretions suctioned; oral care done. G tube feedings started. Wound care done
[2019-02-04 11:15] VITALS: BP 136/72
[2019-02-04] MEDS: IV NS 1000 ML 1,000 ML IV PRN (12:57)
--- NOTE | 2019-02-04 14:00 | NUR ---
Secretions suctioned. Repositioned comfortably
[2019-02-04 15:35] VITALS: BP 122/59
[2019-02-04] MEDS: JEVITY 1.2 1000 ML LIQUID GT PRN (16:40)
--- NOTE | 2019-02-04 18:02 | NUR ---
Kept dry and comfortable. Afebrile. O2 at 2L/NC. Not in distress. IVF infusing. G tube feedings on going..
[2019-02-04 20:28] VITALS: BP 149/88
--- NOTE | 2019-02-05 00:33 | NUR ---
replaced nasal cannula and applied foam for padding. No residual, G-tube was flushed. Patient is sleeping comfortably. No signs of distress or fever.
--- NOTE | 2019-02-05 00:45 | NUR ---
patient was cleaned and repositioned with [employer]. No BM, only urine output at this time. No residual from G-tube.
[2019-02-05] MEDS: IV NS 1000 ML 1,000 ML IV PRN ×2 (03:12→19:35)
[2019-02-05 04:42] VITALS: BP 125/69
[2019-02-05] MEDS: PIPERACILLIN/TAZOBACTAM/D5W 3.375 G in PREMIXED 1 EACH IV SCH ×2 (05:19→14:22)
--- NOTE | 2019-02-05 07:19 | NUR ---
Nurse Notes: ' report from the night nurse Muriel Jaimes, AN feeding is turn off from 0600 to 1000. Patient is non-verbal, patient appears in no discomfort. In no respiratory distress. Head of bed elevated. IV is infusing at 75 cc per hour.
[2019-02-05 07:32] LABS: BASOPHILS # (AUTO) 0.1 K/uL (0.0-8.0); BASOPHILS % (AUTO) 0.6 % (0.0-2.0); EOSINOPHILS # (AUTO) 0.1 K/uL (0.0-0.7); EOSINOPHILS % (AUTO) 1.4 % (0.0-7.0); HEMATOCRIT 37.9 % (36.7-47.1); HEMOGLOBIN 12.9 g/dL (12.5-16.3); LYMPHOCYTES # (AUTO) 0.9 K/uL (20.0-40.0); LYMPHOCYTES % (AUTO) 9.4 % (20.5-51.5); MEAN CORPUSCULAR HEMOGLOBIN 28.3 uug (23.8-33.4); MEAN CORPUSCULAR HGB CONC 34 g/dL (32.5-36.3); MEAN CORPUSCULAR VOLUME 83.2 fL (73.0-96.2); MONOCYTES # (AUTO) 0.5 K/uL (2.0-10.0); MONOCYTES % (AUTO) 5.5 % (0.0-11.0); NEUTROPHILS # (AUTO) 8.3 K/uL (1.8-8.9); NEUTROPHILS % (AUTO) 83.1 % (38.5-71.5); PLATELET COUNT (AUTO) 243 K/uL (152-348); RED BLOOD CELL COUNT(AUTO) 4.55 MIL/uL (4.06-5.63)
[2019-02-05 07:42] LABS: ALANINE AMINOTRANSFERASE 9 U/L (16-63); ALKALINE PHOSPHATASE 61 U/L (50-136); ASPARTATE AMINOTRANSFERASE 9 U/L (15-37); BILIRUBIN,TOTAL 0.3 mg/dL (0.2-1.0); CARBON DIOXIDE 29 mmol/L (21-32); CHLORIDE 104 mmol/L (98-107); CREATININE 0.6 mg/dL (0.6-1.3); GLUCOSE 100 mg/dL (74-106); MAGNESIUM 1.9 mg/dL (1.8-2.4); PHOSPHOROUS 3.1 mg/dL (2.5-4.9); TOTAL PROTEIN, SERUM 6.1 g/dL (6.4-8.2); UREA NITROGEN, BLOOD 12 mg/dL (7-18)
[2019-02-05] MEDS ORDERED: ACETAMINOPHEN 325 MG TABLET GT PRN (08:33)
[2019-02-05] MEDS ORDERED: HYDROCODONE/APAP 5-325MG TABLET GT PRN (08:34)
[2019-02-05] MEDS ORDERED: MAGNESIUM HYDROXIDE 30 ML LIQUID UDC GT PRN (08:35)
[2019-02-05 08:39] VITALS: BP 126/65
[2019-02-05] MEDS: CULTURELLE CAPSULE PEG SCH ×2 (09:35→20:25)
[2019-02-05] MEDS: VALPROIC ACID 250 MG/5 ML LIQUID UDC GT SCH ×2 (09:35→20:25)
[2019-02-05] MEDS: DOCUSATE SODIUM 100 MG/10 ML LIQUID UDC GT SCH (09:35)
[2019-02-05] MEDS: CARBIDOPA/LEVODOPA 25-100MG TABLET GT SCH ×4 (09:35→20:25)
[2019-02-05] MEDS: MULTIVIT, IRON, MIN NO. 8, FA TABLET GT SCH (09:35)
[2019-02-05] MEDS: CHLORHEXIDINE GLUCONATE 15 ML MOUTHWASH MM SCH ×2 (09:44→18:08)
--- NOTE | 2019-02-05 09:50 | NUR ---
Nurse Notes: GT residual is 3 cc. medications given with flush. Head of bed elevated. IV is infusing at 75 cc per hoour. patient is turned frequently and kept dry.
[2019-02-05] MEDS: JEVITY 1.2 1000 ML LIQUID GT PRN (10:00)
[2019-02-05 11:45] VITALS: BP 123/70
[2019-02-05 16:11] VITALS: BP 111/64
[2019-02-05 19:56] VITALS: BP 118/70
--- NOTE | 2019-02-06 05:48 | NUR ---
Patient was sleeping intermittently at night, no signs of distress, cooperative with care, tolerated tube feeding and water flushes well. No residual. No BM, only urine. Lung sounds are diminished, cough is less frequent. Zosyn was DCd. IV and feeding tubing were replaced. IV is patent. Patinet was cleaned and repositioned.
[2019-02-06 06:17] VITALS: BP 111/61
[2019-02-06] MEDS: CULTURELLE CAPSULE PEG SCH ×2 (10:03→20:56)
[2019-02-06] MEDS: VALPROIC ACID 250 MG/5 ML LIQUID UDC GT SCH ×2 (10:03→20:55)
[2019-02-06] MEDS: DOCUSATE SODIUM 100 MG/10 ML LIQUID UDC GT SCH (10:04)
[2019-02-06] MEDS: CARBIDOPA/LEVODOPA 25-100MG TABLET GT SCH ×4 (10:04→20:56)
[2019-02-06] MEDS: MULTIVIT, IRON, MIN NO. 8, FA TABLET GT SCH (10:04)
[2019-02-06] MEDS: JEVITY 1.2 1000 ML LIQUID GT PRN (10:05)
[2019-02-06] MEDS: CHLORHEXIDINE GLUCONATE 15 ML MOUTHWASH MM SCH ×2 (10:05→16:41)
[2019-02-06 11:00] VITALS: BP 128/61
[2019-02-06 14:49] VITALS: BP 154/73
--- NOTE | 2019-02-06 19:30 | NUR ---
Received patient in bed. Patient is alert, but nonverbal. No signs of acute distress noted. No signs of pain or SOB, patient on 2L NC saturating at 96% IVF running on the right wrist, no s/s of infection or infiltration. Vitals are WNL. Patient is on tube feedings 80cc/hr. Off at 6am on at 10am. DVT pumps are intact. Safety measures initiated. Bed is low and locked, call light within reach, side rails up x2. Will continue to monitor.
[2019-02-06 20:09] VITALS: BP 132/74
[2019-02-07 04:30] VITALS: BP 115/64
[2019-02-07 06:46] LABS: BASOPHILS # (AUTO) 0.1 K/uL (0.0-8.0); BASOPHILS % (AUTO) 0.5 % (0.0-2.0); EOSINOPHILS # (AUTO) 0.1 K/uL (0.0-0.7); EOSINOPHILS % (AUTO) 0.9 % (0.0-7.0); HEMATOCRIT 37.3 % (36.7-47.1); HEMOGLOBIN 12.2 g/dL (12.5-16.3); LYMPHOCYTES # (AUTO) 1.1 K/uL (20.0-40.0); LYMPHOCYTES % (AUTO) 8.4 % (20.5-51.5); MEAN CORPUSCULAR HGB CONC 33 g/dL (32.5-36.3); MEAN CORPUSCULAR VOLUME 85.2 fL (73.0-96.2); MONOCYTES # (AUTO) 0.6 K/uL (2.0-10.0); MONOCYTES % (AUTO) 4.8 % (0.0-11.0); NEUTROPHILS % (AUTO) 85.4 % (38.5-71.5); PLATELET COUNT (AUTO) 237 K/uL (152-348); RED BLOOD CELL COUNT(AUTO) 4.38 MIL/uL (4.06-5.63); WHITE BLOOD COUNT (AUTO) 12.9 K/uL (3.6-10.2)
[2019-02-07 06:59] LABS: ALANINE AMINOTRANSFERASE 9 U/L (16-63); ALKALINE PHOSPHATASE 68 U/L (50-136); ASPARTATE AMINOTRANSFERASE 15 U/L (15-37); BILIRUBIN,TOTAL 0.3 mg/dL (0.2-1.0); CARBON DIOXIDE 30 mmol/L (21-32); CHLORIDE 106 mmol/L (98-107); CREATININE 0.6 mg/dL (0.6-1.3); GLUCOSE 136 mg/dL (74-106); MAGNESIUM 2.2 mg/dL (1.8-2.4); PHOSPHOROUS 2.5 mg/dL (2.5-4.9); POTASSIUM 4.1 mmol/L (3.5-5.1); TOTAL PROTEIN, SERUM 6.3 g/dL (6.4-8.2); UREA NITROGEN, BLOOD 12 mg/dL (7-18)
--- NOTE | 2019-02-07 07:30 | NUR ---
Patient calm and comfortable with no signs of distress. Patient call light with in reach and safety devices with in place.
[2019-02-07] MEDS: MULTIVIT, IRON, MIN NO. 8, FA TABLET GT SCH (09:17)
[2019-02-07] MEDS: CULTURELLE CAPSULE PEG SCH ×2 (09:17→21:18)
[2019-02-07] MEDS: CARBIDOPA/LEVODOPA 25-100MG TABLET GT SCH ×4 (09:20→21:18)
[2019-02-07] MEDS: VALPROIC ACID 250 MG/5 ML LIQUID UDC GT SCH ×2 (09:22→21:17)
[2019-02-07] MEDS: DOCUSATE SODIUM 100 MG/10 ML LIQUID UDC GT SCH (09:22)
[2019-02-07] MEDS: CHLORHEXIDINE GLUCONATE 15 ML MOUTHWASH MM SCH ×2 (09:22→17:34)
[2019-02-07 12:00] VITALS: BP 113/62
[2019-02-07] MEDS ORDERED: PIPERACILLIN SODIUM/TAZOBACTAM 3.375 G in IV DEXTROSE 5% 50 ML IV ONE (12:15)
[2019-02-07] MEDS: JEVITY 1.2 1000 ML LIQUID GT PRN (12:27)
--- NOTE | 2019-02-07 13:52 | NUR ---
CLINICAL PHARMACY NOTE:VANCOMYCIN DOSING S: To Restart vancomycin dosing on 73 y/o male 177.8 cm 77.11kg for suspected infection. O: Temp 98.3 BUN 12 Scr 0.6 WBC 12.9 Restart vancomycin at 1gm ivpb q10h hours estimated trough 15.8 (based on last level achieved at this dose). Will order trough level prior to 4th dose. Will continue to monitor.
[2019-02-07] MEDS ORDERED: VANCOMYCIN IV 1 G in PREMIXED 0 EACH IV SCH (14:00)
[2019-02-07] MEDS: VANCOMYCIN IV 1 G in PREMIXED 0 EACH IV SCH (14:58)
[2019-02-07 16:00] VITALS: BP 115/60
[2019-02-07 17:18] LABS: *BILIRUBIN,URIN NEGATIVE (NEGATIVE); *BLOOD, URINE NEGATIVE (NEGATIVE); *CLARITY,URINE CLOUDY (CLEAR); *COLOR,URINE YELLOW (YELLOW); *KETONES,URINE NEGATIVE (NEGATIVE); *UROBILINOGEN,URINE 0.2 E.U./dl (NORMAL); LEUKOCYTE ESTERASE ,URINE NEGATIVE (NEGATIVE); NITRITE, URINE NEGATIVE (NEGATIVE); PH,URINE 8.5 (5.0-8.0); UGLUCOSE NEGATIVE (NEGATIVE)
[2019-02-07] MEDS: IV NS 1000 ML 1,000 ML IV PRN ×2 (17:34)
[2019-02-07 18:07] LABS: MUCUS,URINE MODERATE /LPF (0-FEW); URINE AMORPHOUS PHOSPHATES MANY /HPF; WBC,URINE 0-3 /HPF (0-3)
[2019-02-07] MEDS: PIPERACILLIN/TAZOBACTAM/D5W 50 ML IV SCH (18:14)
--- NOTE | 2019-02-07 19:00 | NUR ---
Patient calm and comfortable with no signs of distress. Safety devices with in reach.
--- NOTE | 2019-02-07 19:02 | NUR ---
Patient calm and comfortable with no signs of distress. Safety devices with in reach.
[2019-02-07 20:00] VITALS: BP 147/75
[2019-02-08] MEDS: VANCOMYCIN IV 1 G in PREMIXED 0 EACH IV SCH ×2 (00:52→11:19)
[2019-02-08] MEDS: PIPERACILLIN/TAZOBACTAM/D5W 50 ML IV SCH ×2 (01:26→05:26)
[2019-02-08] MEDS: JEVITY 1.2 1000 ML LIQUID GT PRN (05:26)
[2019-02-08 06:00] VITALS: BP 105/54
--- NOTE | 2019-02-08 06:53 | NUR ---
Pt. slept intermittently throughout night. IV in right hand 20 gauge intact, patent. IV in left forarm 22 gauge intact patent. All IV antibiotics given. G tube running jevity 1.2 at 80 ml/s hour for 20 hours. Flushed pt. 200 mls Q 6 Hours. Suction pt. as needed. Wound care done mepilex on sacrum and RLE. Xeroform on L heel. Safety measures in place. Call light within reach. Will endorse to AM nurse.
[2019-02-08 07:17] LABS: BASOPHILS # (AUTO) 0.1 K/uL (0.0-8.0); BASOPHILS % (AUTO) 0.7 % (0.0-2.0); EOSINOPHILS # (AUTO) 0.1 K/uL (0.0-0.7); EOSINOPHILS % (AUTO) 0.8 % (0.0-7.0); HEMATOCRIT 38.6 % (36.7-47.1); HEMOGLOBIN 12.6 g/dL (12.5-16.3); LYMPHOCYTES # (AUTO) 0.7 K/uL (20.0-40.0); LYMPHOCYTES % (AUTO) 6.1 % (20.5-51.5); MEAN CORPUSCULAR HEMOGLOBIN 27.8 uug (23.8-33.4); MEAN CORPUSCULAR HGB CONC 33 g/dL (32.5-36.3); MEAN CORPUSCULAR VOLUME 85.2 fL (73.0-96.2); MONOCYTES # (AUTO) 0.5 K/uL (2.0-10.0); MONOCYTES % (AUTO) 4.2 % (0.0-11.0); NEUTROPHILS # (AUTO) 9.9 K/uL (1.8-8.9); NEUTROPHILS % (AUTO) 88.2 % (38.5-71.5); PLATELET COUNT (AUTO) 237 K/uL (152-348); RED BLOOD CELL COUNT(AUTO) 4.54 MIL/uL (4.06-5.63); WHITE BLOOD COUNT (AUTO) 11.3 K/uL (3.6-10.2)
[2019-02-08 07:29] LABS: CARBON DIOXIDE 29 mmol/L (21-32); CHLORIDE 101 mmol/L (98-107); CREATININE 0.7 mg/dL (0.6-1.3); GLUCOSE 119 mg/dL (74-106); PHOSPHOROUS 3.4 mg/dL (2.5-4.9); POTASSIUM 3.9 mmol/L (3.5-5.1); UREA NITROGEN, BLOOD 12 mg/dL (7-18)
[2019-02-08 09:15] VITALS: BP 121/66
--- NOTE | 2019-02-08 10:00 | NUR ---
pt tolerating TF well. no residuals. flushed w/ 200ml water. photos of skin/ wounds taken and placed in chart. reports given to LOBO Juarez from facility and transportation. L forearm 20g IV kept in for facility usage. R forearm IV removed. pt calm and cooperative with care. d/c @[id number] [facility].
[2019-02-08] MEDS: CHLORHEXIDINE GLUCONATE 15 ML MOUTHWASH MM SCH (10:24)
[2019-02-08] MEDS: CULTURELLE CAPSULE PEG SCH (10:24)
[2019-02-08] MEDS: VALPROIC ACID 250 MG/5 ML LIQUID UDC GT SCH (10:24)
[2019-02-08] MEDS: CARBIDOPA/LEVODOPA 25-100MG TABLET GT SCH (10:24)
[2019-02-08] MEDS: MULTIVIT, IRON, MIN NO. 8, FA TABLET GT SCH (10:24)
[2019-02-08] MEDS: DOCUSATE SODIUM 100 MG/10 ML LIQUID UDC GT SCH (10:38)
[2019-02-08 11:30] VITALS: BP 124/74
[2019-02-08] MEDS ORDERED: CARB1TAB21 GT (12:04)
[2019-02-08] MEDS ORDERED: MAGN400O6 GT (12:04)
[2019-02-08] MEDS ORDERED: RXVAN IV (12:04)
[2019-02-08] MEDS ORDERED: VALP250S17 GT (12:04)
[2019-02-08] MEDS ORDERED: DOCU50LI GT (12:04)
[2019-02-08] MEDS ORDERED: LACT-209 GT (12:04)
[2019-02-08] MEDS ORDERED: LACT1CAP57 PEG (12:04)
[2019-02-08] MEDS ORDERED: PIPE3.376 IV (12:04)
--- NOTE | 2019-02-08 13:11 | NUR ---
CLINICAL PHARMACY NOTE:VANCOMYCIN DOSING S: To continue vancomycin dosing on 73 y/o male 177.8 cm 77.11kg for suspected infection. O: Temp 97.5 BUN 12 Scr 0.7 WBC 11.3 ht 177.8 cm wt 80 kg Plan Will continue same dose of vancomycin at 1gm ivpb q10h hours for now. Will order trough level prior to 4th dose (ordered for 02/08 at 1930). Pharmacy shall review the level when available & adjust the dose if needed. Will continue to monitor.
[2019-02-08 15:21] VITALS: BP 95/56
== END 2019-02-08 12:20 | DRG 871 ==
LOC: ER 12:30 → TELE3 15:53 → MEDSURG3 01-26 10:19
PROVIDERS: ADMIT Nurse Practitioner Acute Care; ATTEND Nurse Practitioner Acute Care
PROC: 0DH67UZ Insertion of Feeding Device into Stomach, Via Natural or Artificial Opening (ICD-10-PCS; principal; 2019-01-28)
PROC: 3E0G76Z Introduction of Nutritional Substance into Upper GI, Via Natural or Artificial Opening (ICD-10-PCS; 2019-01-28)
PROC: 0DH63UZ Insertion of Feeding Device into Stomach, Percutaneous Approach (ICD-10-PCS; 2019-01-30)
DX: A41.9 Sepsis, unspecified organism (principal); R40.2342 Coma scale, best motor response, flexion withdrawal, at arrival to emergency department; R40.2212 Coma scale, best verbal response, none, at arrival to emergency department; R53.2 Functional quadriplegia; J69.0 Pneumonitis due to inhalation of food and vomit; E43 Unspecified severe protein-calorie malnutrition; G92 Toxic encephalopathy; N39.0 Urinary tract infection, site not specified; D68.59 Other primary thrombophilia; R47.01 Aphasia; R65.20 Severe sepsis without septic shock; R40.2132 Coma scale, eyes open, to sound, at arrival to emergency department; G40.909 Epilepsy, unspecified, not intractable, without status epilepticus; L89.610 Pressure ulcer of right heel, unstageable; L89.110 Pressure ulcer of right upper back, unstageable; L89.620 Pressure ulcer of left heel, unstageable; S81.801A Unspecified open wound, right lower leg, initial encounter; X58.XXXA Exposure to other specified factors, initial encounter; Y92.099 Unspecified place in other non-institutional residence as the place of occurrence of the external cause; Z68.24 Body mass index [BMI] 24.0-24.9, adult; E78.5 Hyperlipidemia, unspecified; R13.10 Dysphagia, unspecified; R62.7 Adult failure to thrive; E87.6 Hypokalemia; E83.42 Hypomagnesemia; G31.9 Degenerative disease of nervous system, unspecified; F02.80 Dementia in other diseases classified elsewhere, unspecified severity, without behavioral disturbance, psychotic disturbance, mood disturbance, and anxiety; G20 Parkinson's disease; Z74.09 Other reduced mobility; F20.9 Schizophrenia, unspecified; L89.519 Pressure ulcer of right ankle, unspecified stage; I70.0 Atherosclerosis of aorta; Z74.01 Bed confinement status
CPT/HCPCS: 36415; 43235; 70030-TC; 71045; 74230; 83605; 83735; 84100; 84443; 85025; 85730; 87040; 87086; 92526; 92610; 92611; 93005; 97110; 97165; 97530; A4217; A4663; C1758; G0378; J0696; J2543; J3370; J3475; J3480; J3490; J7030; J7040; J7060